=== PATIENT | male | born 1960 | race Caucasian/White ===

== ENCOUNTER 2017-05-08 16:35 | Emergency (ER) | payer OTHER, BC ==
[2017-05-08] MEDS ORDERED: LEVOFLOXACIN 500 MG/D5W RTU 100 ML IV ONE (17:26)
[2017-05-08] MEDS ORDERED: NORMAL SALINE 1000 ML 1,000 ML IV PRN (17:27)
[2017-05-08 18:03] LABS: APPEARANCE,URINE CLOUDY; BILIRUBIN,URINE NEGATIVE (NEGATIVE); GLUCOSE, URINE NEGATIVE (NEGATIVE); KETONES,URINE NEGATIVE (NEGATIVE); LEUKOCYTE ESTERASE,URINE MODERATE (NEGATIVE); NITRITE,URINE POSITIVE (NEGATIVE); PROTEIN,URINE 30 mg/dL (NEGATIVE); URINE SPECIFIC GRAVITY 1.019; UROBILINOGEN,URINE NEGATIVE mg/dL (<2.0)
[2017-05-08] MEDS ORDERED: IBUPROFEN 600 MG TABLET PO ONE (18:05)
[2017-05-08 18:06] LABS: HEMATOCRIT 42.4 % (37.9-51.0); HEMOGLOBIN 14.2 g/dL (13.5-17.0); HGB HCT DIFFERENCE 0.2; MEAN CORPUSCULAR HGB CONC 33.6 g/dL (32.0-36.0); MEAN CORPUSCULAR VOLUME 92 fl (80-97); WHITE BLOOD COUNT 6.9 10^3/uL (4.0-10.5)
--- NOTE | 2017-05-08 18:07 | RADIOLOGY REPORT (SQ) ---
EXAM DESCRIPTION: CHEST PA/LAT COMPLETED DATE/TIME: 05/08/2017 5:47 pm REASON FOR STUDY: fever, cough COMPARISON: 09/10/2008 EXAM PARAMETERS: NUMBER OF VIEWS: two views TECHNIQUE: Digital Frontal and Lateral radiographic views of the chest acquired. RADIATION DOSE: NA LIMITATIONS: none FINDINGS: LUNGS AND PLEURA: No opacities, masses or pneumothorax. No pleural effusion. MEDIASTINUM AND HILAR STRUCTURES: No masses or contour abnormalities. HEART AND VASCULAR STRUCTURES: Heart normal size. No evidence for failure. BONES: No acute findings. HARDWARE: None in the chest. OTHER: No other significant finding. IMPRESSION: NO SIGNIFICANT RADIOGRAPHIC FINDING IN THE CHEST. TECHNICAL DOCUMENTATION: JOB ID: [id number] [employer]- All Rights Reserved
[2017-05-08 18:10] LABS: BACTERIA,URINE 4+ /HPF; RBC,URINE 0-1 /HPF
[2017-05-08 18:21] LABS: BAND NEUTROPHILS % (MANUAL) 6 % (3-5); BASOPHILS % (MANUAL) 0 % (0-2); EOSINOPHILS % (MANUAL) 1 % (0-6); LYMPHOCYTES % (MANUAL) 3 % (13-45); TOTAL CELLS COUNTED 100
[2017-05-08 18:22] LABS: RBC MORPHOLOGY COMMENT NORMO-CYTIC/CHROMIC
[2017-05-08 18:28] LABS: ALANINE AMINOTRANSFERASE 28 U/L (21-72); ALBUMIN 3.4 g/dL (3.5-5.0); ALKALINE PHOSPHATASE 67 U/L (38-126); ANION GAP 9 (5-19); ASPARTATE AMINO TRANSFERASE 24 U/L (17-59); BILIRUBIN,DIRECT 0.4 mg/dL (0.0-0.4); BILIRUBIN,TOTAL 1.6 mg/dL (0.2-1.3); BLOOD UREA NITROGEN 16 mg/dL (7-20); CALCIUM 8.3 mg/dL (8.4-10.2); CARBON DIOXIDE 24 mmol/L (22-30); CHLORIDE 108 mmol/L (98-107); CREATININE RESULT 1.05 mg/dL (0.52-1.25); GLUCOSE 109 mg/dL (75-110); SODIUM 140.7 mmol/L (137-145); TOTAL PROTEIN 6.2 g/dL (6.3-8.2)
--- NOTE | 2017-05-08 20:45 | RADIOLOGY REPORT (SQ) ---
EXAM DESCRIPTION: CTA CHEST COMPLETED DATE/TIME: 05/08/2017 8:33 pm REASON FOR STUDY: sshortness of breath, rigors COMPARISON: None. TECHNIQUE: CT scan of the chest performed using helical scanning technique with dynamic intravenous contrast injection. Images reviewed with lung, soft tissue and bone windows. Reconstructed coronal and sagittal MPR images reviewed. Additional 3 dimensional post-processing performed to develop Maximal Intensity Projection images (DE P). All images stored on PACS. All CT scanners at this facility use dose modulation, iterative reconstruction, and/or weight based d osing when appropriate to reduce radiation dose to as low as reasonably achievable (ALARA). [facility]: Dose Right [facility]: CareDose [facility]: Dose Right [facility]: Teradose 4D [facility]: [employer] CONTRAST TYPE AND DOSE: contrast/concentration: Isovue 370.00 mg/ml; Total Contrast Delivered: 81.0 ml; Total Saline Delivered: 110.0 ml RENAL FUNCTION: BUN 16; creatinine 1.05 RADIATION DOSE: Up-to-date CT equipment and radiation dose reduction techniques were employed. CTDIv ol: 16.5 - 32.8 mGy. DLP: 4223 mGy-cm. . LIMITATIONS: Examination was ordered as a combination study, resulting in suboptimal bolus timing fo r the evaluation of the pulmonary arteries. FINDINGS: LUNGS AND PLEURA: Biapical emphysematous changes. No masses, infiltrates, pneumothorax. No pleural effusions, calcifications. AORTA AND GREAT VESSELS: No aneurysm or dissection. HEART: No pericardial effusion. PULMONARY ARTERIES: No emboli visualized in the main pulmonary arteries or the segmental branches. HILAR AND MEDIASTINAL STRUCTURES: No identified masses or abnormal nodes. HARDWARE: None in the chest. UPPER ABDOMEN: See separate report of the CT of the abdomen. THYROID AND OTHER SOFT TISSUES: No masses. No adenopathy. BONES: No acute or significant finding. 3D MIPS: Confirm above findings. OTHER: No other significant finding. IMPRESSION: NORMAL CTA OF THE CHEST. NO PULMONARY EMBOLI. BACKGROUND OF BIAPICAL EMPHYSEMATOUS INFANTE GE. TECHNICAL DOCUMENTATION: JOB ID: [id number] Quality ID # [id number]: Final reports with documentation of one or more dose reduction techniques (e.g., Au tomated exposure control, adjustment of the mA and/or kV according to patient size, use of iterative reconstruction technique) 2010 [employer]- All Rights Reserved
--- NOTE | 2017-05-08 20:51 | RADIOLOGY REPORT (SQ) ---
EXAM DESCRIPTION: CT ABD/PELVIS WITH IV ONLY COMPLETED DATE/TIME: 05/08/2017 8:33 pm REASON FOR STUDY: abd pain COMPARISON: None. TECHNIQUE: CT scan of the abdomen and pelvis performed using helical scanning technique with dynamic intravenous contrast injection. No oral contrast. Images reviewed with lung, soft tissue, and bone windows. Reconstructed coronal and sagittal MPR images reviewed. Delayed images for evaluation of the urinary system also acquired. All images stored on PACS. All CT scanners at this facility use dose modulation, iterative reconstruction, and/or weight based d osing when appropriate to reduce radiation dose to as low as reasonably achievable (ALARA). [facility]: Dose Right [facility]: CareDose [facility]: Dose Right [facility]: Teradose 4D [facility]: [facility] CONTRAST TYPE AND DOSE: 81 ML Isovue 370- low osmolar. RENAL FUNCTION: BUN 16; CREATININE 1.05 RADIATION DOSE: . LIMITATIONS: None. FINDINGS: LOWER CHEST: See separate report of the CT of the chest. LIVER: Normal size. No masses or dilated ducts. SPLEEN: Normal size. No focal lesions. PANCREAS: No masses. No significant calcifications. No adjacent inflammation or peripancreatic fluid collections. Pancreatic duct not dilated. GALLBLADDER: No identified stones by CT criteria. No inflammatory changes to suggest cholecystitis. ADRENAL GLANDS: No significant masses or asymmetry. RIGHT KIDNEY AND URETER: No solid masses. Incidental note is made of a 1.5 cm simple cyst. No sign ificant calcifications. No hydronephrosis or hydroureter. LEFT KIDNEY AND URETER: No solid masses. No significant calcifications. No hydronephrosis or hydr oureter. AORTA AND VESSELS: No aneurysm. No dissection. Renal arteries, SMA, celiac without stenosis. RETROPERITONEUM: No retroperitoneal adenopathy, hemorrhage or masses. BOWEL AND PERITONEAL CAVITY: No masses or inflammatory changes. No free fluid or peritoneal masses. APPENDIX: Normal. PELVIS: No mass or free fluid. Normal bladder. ABDOMINAL WALL: No masses. Small, fat containing left inguinal hernia. BONES: No significant or acute findings. OTHER: No other significant finding. IMPRESSION: NO SIGNIFICANT OR ACUTE FINDING IN THE ABDOMEN OR PELVIS ON CT SCAN WITH IV CONTRAST. TECHNICAL DOCUMENTATION: JOB ID: [id number] Quality ID # [id number]: Final reports with documentation of one or more dose reduction techniques (e.g., Au tomated exposure control, adjustment of the mA and/or kV according to patient size, use of iterative reconstruction technique) 2010 [employer]- All Rights Reserved
--- NOTE | 2017-05-08 22:05 | ER Document Report ---
ED General - General Chief Complaint: Fever Stated Complaint: ABDOMINAL CRAMPING Time Seen by Provider: 05/08/17 17:08 Mode of Arrival: Ambulatory Information source: Patient Notes: Is a 56-year-old man who brought to the emergency room by EMS because of abdominal pain and weakness. The patient had a prostate biopsy by Dr. Blevins yesterday and [facility] (status post 12 punch biopsies). He was placed on prophylactic Bactrim and was usual state of health until approximately 10 AM this morning. The patient developed significant Rigors and fever. Patient's temperature was noted by EMS to be 102.8. TRAVEL OUTSIDE OF THE [place] IN LAST 30 DAYS: No - HPI Onset: Just prior to arrival Onset/Duration: Sudden Quality of pain: Achy Severity: None Pain Level: Denies Associated symptoms: Fever. denies: Nausea, Vomiting, Shortness of breath Exacerbated by: Denies Relieved by: Denies Similar symptoms previously: No Recently seen / treated by doctor: Yes - Related Data Allergies/Adverse Reactions: No Known Allergies Allergy (Verified 05/08/17 17:08) Past Medical History - General Information source: Patient - Social History Smoking Status: Former Smoker Cigarette use (# per day): No Chew tobacco use (# tins/day): No Frequency of alcohol use: None Drug Abuse: None Lives with: Family Family History: Reviewed & Not Pertinent Patient has suicidal ideation: No Patient has homicidal ideation: No - Past Medical History Cardiac Medical History: Reports: None Pulmonary Medical History: Reports: None EENT Medical History: Reports: None Neurological Medical History: Reports: None Endocrine Medical History: Reports: None Renal/ Medical History: Reports: None. Denies: Hx Peritoneal Dialysis Malignancy Medical History: Reports Other - He had a biopsy of his prostate for an elevated PSA GI Medical History: Reports: None Musculoskeltal Medical History: Reports None Psychiatric Medical History: Reports: None Traumatic Medical History: Reports: None Infectious Medical History: Reports: None Past Surgical History: Reports: Hx Orthopedic Surgery - Immunizations Hx Diphtheria, Pertussis, Tetanus Vaccination: Yes Review of Systems - Review of Systems Constitutional: Chills, Fever EENT: No symptoms reported Cardiovascular: No symptoms reported Respiratory: No symptoms reported Gastrointestinal: No symptoms reported Genitourinary: See HPI Male Genitourinary: See HPI Musculoskeletal: No symptoms reported Skin: No symptoms reported Hematologic/Lymphatic: No symptoms reported Neurological/Psychological: No symptoms reported Physical Exam - Vital signs Vitals: Temp Pulse Resp BP Pulse Ox 102.3 F H 110 H 18 122/66 93 05/08/17 17:00 05/08/17 17:00 05/08/17 17:00 05/08/17 17:00 05/08/17 17:00 Notes: Physical exam: GENERAL: 6-year-old man, alert and oriented 3, no acute distress, febrile HEAD: Atraumatic, normocephalic. EYES: Pupils equal round and reactive to light, extraocular movements intact, sclera anicteric, conjunctiva are normal. ENT: TMs normal, nares patent, oropharynx clear without exudates. Moist mucous membranes. NECK: Normal range of motion, supple without lymphadenopathy or JVD. LUNGS: Breath sounds clear to auscultation bilaterally and equal. No wheezes rales or rhonchi. HEART: Regular rate and rhythm without murmurs, rubs or gallops. ABDOMEN: Soft, normoactive bowel sounds. No tenderness to palpation. No guarding, no rebound. No masses appreciated. EXTREMITIES: Normal range of motion, no pitting or edema. No clubbing or cyanosis. NEUROLOGICAL: Cranial nerves II through XII grossly intact. Normal speech, normal gait. PSYCH: Normal mood, normal affect. SKIN: Warm, Dry, normal turgor, no rashes or lesions noted. Course - Re-evaluation Re-evalutation: 05/08/17 22:22 Note: It had symptoms concerning for bacteremia. His vital signs are stable. His labs show normal white count with a left shift and a mild bandemia. He was treated with IV fluids and IV levofloxacin. His oxygen saturation has been in 92-93% so a CT of the chest was performed to make sure there were no pulmonary emboli (none was seen). It does show some emphysematous changes which is consistent with his remote history of smoking. Because he had issues with abdominal discomfort, CT scan of the abdomen was done which showed no acute intra-abdominal process. In analysis did show some white cells and some bacteria. And urine cultures were sent before the antibiotics were started. I had discussed the case with Dr. Calderon who is covering for Dr. Blevins and he wanted me to send the patient home with oral Cipro and oral amoxicillin. He asked me to do a post void residual on the patient. I discussed this with the patient and he was adamantly against catheterization at this time. I did check a bedside ultrasound and he does have some retention on urine and I offered him a Macedo catheter with a bag and I explained the risks of infected urine, residual urinary retention and sepsis. At this time, the patient feels better and is adamantly against a catheter. He understands the risks and he said if he feels any worse he will come back for that. Otherwise, he will follow-up with Dr. Blevins on Wednesday. 05/08/17 22:26 Informed the patient that he will be contacted if his urine or blood cultures are positive. His cell phone number is [phone] - Vital Signs Vital signs: Temp Pulse Resp BP Pulse Ox 98.2 F 110 H 24 H 109/68 98 05/08/17 22:18 05/08/17 17:00 05/08/17 22:18 05/08/17 22:18 05/08/17 22:18 - Laboratory Result Diagrams: 05/08/17 17:40 05/08/17 17:40 Laboratory results interpreted by me: 05/08/17 05/08/17 05/08/17 17:40 17:40 17:40 Seg Neuts % (Manual) 90 H Band Neutrophils % 6 H Lymphocytes % (Manual) 3 L Monocytes % (Manual) 0 L Abs Lymphs (Manual) 0.2 L Abs Monocytes (Manual) 0.0 L Chloride 108 H Calcium 8.3 L Total Bilirubin 1.6 H Total Protein 6.2 L Albumin 3.4 L Urine Protein 30 H Urine Blood SMALL H Urine Nitrite POSITIVE H Ur Leukocyte Esterase MODERATE H - Diagnostic Test Radiology reviewed: Image reviewed, Reports reviewed - CTA of the chest shows emphysematous changes, no pulmonary emboli. CT of the abdomen shows no acute intra-abdominal process. Discharge - Discharge Clinical Impression: Fever status post prostate biopsy Condition: Stable Disposition: HOME, SELF-CARE Instructions: Acetaminophen, Fever ([facility]) Additional Instructions: Recommendations: As we discussed, I would take it easy over the next few days. You can take Tylenol and Advil for pain Like you to see Dr. Blevins on Wednesday. Please tell him that we sent blood and urine cultures. Treated with IV levofloxacin while you were in the emergency room peer I did Speak with Dr. Calderon who was covering for Dr. Gen lema. Take the antibiotics as prescribed. If you have persistent fever, abdominal pain or if you feel you are getting worse, return to the ER either here or at [facility] (Dr Blevins admits patients to [facility] but not here at [place]). Continue with the Flomax. Make concerted efforts to urinate even if you do not have the sensation to. Prescriptions: Amoxicillin Trihydrate [Amoxil 500 mg Capsule] 500 mg PO TID #30 cap Ciprofloxacin HCl [Cipro 500 mg Tablet] 500 mg PO BID #20 tablet
[2017-05-08 22:22] VITALS: BP 109/68
== END 2017-05-08 22:22 | disposition home or self-care (01) ==
LOC: ER 16:35
DX: A41.9 Sepsis, unspecified organism (principal); R68.89 Other general symptoms and signs; R50.9 Fever, unspecified; R06.02 Shortness of breath; R00.0 Tachycardia, unspecified
CPT/HCPCS: 99285; 96365; 36415; 87040; 87086; 85025; 87077; 87088; 80053; 81001; 87186; 71020; 71275; 74177; J1956; J7030

== ENCOUNTER 2017-05-09 01:21 | Inpatient (IN) | payer OTHER, BC ==
[2017-05-09] MEDS ORDERED: CEFTRIAXONE 1 GM/D5W RTU 50 ML IV ONE (01:39)
[2017-05-09] MEDS ORDERED: VANCOMYCIN HCL INJ 1000 MG VIAL IV ONE (01:39)
[2017-05-09] MEDS ORDERED: NORMAL SALINE 1000 ML 1,000 ML IV ONE ×2 (01:39→10:06)
--- NOTE | 2017-05-09 01:41 | ER Document Report ---
ED General - General Chief Complaint: Shortness Of Breath Stated Complaint: BREATHING PROBLEMS Time Seen by Provider: 05/09/17 01:28 Notes: Patient is a 56-year-old male who 24 hours ago had a 12 punch biopsy of his prostate who presents with recurrent fevers after just being discharged in the emergency department 3 hours ago. During his prior to the patient was noted to be febrile up to 102.7, tachycardic, and ill in appearance. He was given IV antibiotics and on the recommendation of the urologist who performed the procedure he was discharged home on ciprofloxacin. Patient states shortly after returning home he again developed diffuse chills, rigors, recurrent fever. He notes that he was shaking so bad he felt short of breath. Nothing improves or worsens his symptoms. Denies any focal abdominal pain, sputum production, chest pain or syncope. TRAVEL OUTSIDE OF THE [place] IN LAST 30 DAYS: No - Related Data Allergies/Adverse Reactions: No Known Allergies Allergy (Verified 05/08/17 17:08) Past Medical History - General Information source: Patient - Social History Smoking Status: Never Smoker Frequency of alcohol use: None Drug Abuse: None Lives with: Spouse/Significant other Family History: Reviewed & Not Pertinent Renal/ Medical History: Denies: Hx Peritoneal Dialysis Past Surgical History: Reports: Hx Orthopedic Surgery - Immunizations Hx Diphtheria, Pertussis, Tetanus Vaccination: Yes Review of Systems - Review of Systems Notes: Constitutional: Positive for fever. HENT: Negative for sore throat. Eyes: Negative for visual changes. Cardiovascular: Negative for chest pain. Respiratory: Positive for shortness of breath. Gastrointestinal: Negative for abdominal pain, vomiting or diarrhea. Genitourinary: Negative for dysuria. Musculoskeletal: Negative for back pain. Skin: Negative for rash. Neurological: Negative for headaches, weakness or numbness. 10 point ROS negative except as marked above and in HPI. Physical Exam - Vital signs Vitals: Pulse Pulse Ox 130 H 94 05/09/17 01:25 05/09/17 01:25 Interpretation: Tachycardic, Febrile Notes: PHYSICAL EXAMINATION: GENERAL: Ill in appearance, shaking HEAD: Atraumatic, normocephalic. EYES: Pupils equal round and reactive to light, extraocular movements intact, sclera anicteric, conjunctiva are normal. ENT: nares patent, oropharynx clear without exudates. Dry mucous membranes. NECK: Normal range of motion, supple without lymphadenopathy LUNGS: Breath sounds clear to auscultation bilaterally and equal. No wheezes rales or rhonchi. HEART: Regular tachycardia without murmurs ABDOMEN: Soft, nontender, normoactive bowel sounds. No guarding, no rebound. No masses appreciated. EXTREMITIES: Normal range of motion, no pitting or edema. No cyanosis. NEUROLOGICAL: No focal neurological deficits. Moves all extremities spontaneously and on command. PSYCH: Normal mood, normal affect. SKIN: Warm, Dry, normal turgor, no rashes or lesions noted. Course - Re-evaluation Re-evalutation: 05/09/17 01:40 Patient again presents with a fever, tachycardic, mildly dyspneic, ill in appearance. I have reviewed the prior visit note as well as the CT of the chest and abdomen report. I agree with Dr. Jesus that patient's symptoms are very concerning for acute bacteremia in the setting of a recent prostate procedure. Given that he continues to have both rigors, fever, and tachycardia with a likely gram-negative bacteremia in the setting of a recent prostate procedure, I do not believe it is safe for this patient to be discharged again at this time. Blood cultures are pending from his prior visit. Will broaden his antibiotics to cefepime and vancomycin. Will discuss with the hospitalist for admission. 05/09/17 02:26 Patient's laboratories now show new concerning findings with elevated band levels and a leukopenia again concerning for sepsis. Other laboratories are unchanged. - Vital Signs Vital signs: Temp Pulse Resp BP Pulse Ox 100 F 130 H 17 131/69 H 95 05/09/17 01:30 05/09/17 01:25 05/09/17 02:01 05/09/17 02:01 05/09/17 02:01 - Laboratory Result Diagrams: 05/09/17 01:35 05/09/17 01:35 Laboratory results interpreted by me: 05/09/17 05/09/17 01:35 01:35 WBC 1.7 L D Band Neutrophils % 12 H Monocytes % (Manual) 0 L Metamyelocytes % 2 H Abs Neuts (Manual) 1.2 L Abs Monocytes (Manual) 0.0 L Sodium 146.4 H Chloride 110 H Carbon Dioxide 20 L - Diagnostic Test Radiology reviewed: Image reviewed, Reports reviewed Radiology results interpreted by me: 05/09/17 03:00 Chest x-ray: No acute infiltrate or pneumothorax Discharge - Discharge Clinical Impression: Rigors Sepsis Qualifiers: Sepsis type: sepsis due to unspecified organism Qualified Code(s): A41.9 - Sepsis, unspecified organism Fever Qualifiers: Fever type: unspecified Qualified Code(s): R50.9 - Fever, unspecified Condition: Fair Disposition: ADMITTED INPATIENT Admitting Provider: [facility] Admitted: Telemetry
[2017-05-09 01:44] LABS: HEMOGLOBIN 15.7 g/dL (13.5-17.0); HGB HCT DIFFERENCE -0.9; MEAN CORPUSCULAR HEMOGLOBIN 30.8 pg (27.0-33.4); MEAN CORPUSCULAR HGB CONC 32.7 g/dL (32.0-36.0); MEAN CORPUSCULAR VOLUME 94 fl (80-97); RED BLOOD COUNT 5.09 10^6/uL (4.35-5.55); RED CELL DISTRIBUTION WIDTH 13.4 % (11.5-14.0)
[2017-05-09 01:56] LABS: ANION GAP 16 (5-19); BLOOD UREA NITROGEN 15 mg/dL (7-20); CALCIUM 8.9 mg/dL (8.4-10.2); CARBON DIOXIDE 20 mmol/L (22-30); CHLORIDE 110 mmol/L (98-107); GLUCOSE 86 mg/dL (75-110); POTASSIUM 4.4 mmol/L (3.6-5.0); SODIUM 146.4 mmol/L (137-145)
[2017-05-09 02:01] LABS: WHITE BLOOD COUNT 1.7 10^3/uL (4.0-10.5)
[2017-05-09 02:16] LABS: BASOPHILS % (MANUAL) 0 % (0-2); EOSINOPHILS % (MANUAL) 0 % (0-6); LYMPHOCYTES % (MANUAL) 30 % (13-45); TOTAL CELLS COUNTED 50
[2017-05-09 02:18] LABS: PLATELET CLUMPS PRESENT; POLYCHROMASIA SLIGHT; TOXIC GRANULATION SLIGHT; TOXIC VACUOLATION PRESENT
[2017-05-09 02:20] LABS: BAND NEUTROPHILS % (MANUAL) 12 % (3-5)
[2017-05-09] MEDS ORDERED: MAG HYDROX/AL HYDROX/SIMETH SUSP 30 ML UDCUP PO PRN (02:31)
[2017-05-09] MEDS ORDERED: ONDANSETRON HCL INJ/PF 4 MG/2 ML SDV IV PRN (02:31)
--- NOTE | 2017-05-09 02:36 | RADIOLOGY REPORT (SQ) ---
EXAM DESCRIPTION: CHEST SINGLE VIEW COMPLETED DATE/TIME: 05/09/2017 2:18 am REASON FOR STUDY: sob COMPARISON: Chest x-ray and CTA chest 05/08/2017. EXAM PARAMETERS: NUMBER OF VIEWS: One view. TECHNIQUE: Single frontal radiographic view of the chest acquired. RADIATION DOSE: NA LIMITATIONS: None. FINDINGS: LUNGS AND PLEURA: No consolidation, pneumothorax or pleural effusion. MEDIASTINUM AND HILAR STRUCTURES: No masses. Contour normal. HEART AND VASCULAR STRUCTURES: Heart normal in size. No overt vascular congestion. BONES: No acute findings. HARDWARE: None in the chest. IMPRESSION: No acute radiographic finding in the chest. TECHNICAL DOCUMENTATION: JOB ID: [id number]
[2017-05-09] MEDS ORDERED: VANCOMYCIN HCL 0 MG in DEXTROSE 5%-WATER 250 ML IV NR (02:45)
[2017-05-09] MEDS: NORMAL SALINE 1000 ML 1,000 ML IV SCH ×3 (04:39→21:10)
--- NOTE | 2017-05-09 04:39 | PDOC H&P ---
History of Present Illness Admission Date/PCP: 05/09/17 02:32 Patient complains of: Fever History of Present Illness: NATALIO BETHEA is a 56 year old male with a past medical history of 12 punch biopsies of the prostate 24 hours ago who is had recurrent fevers and chills presented to the emergency room earlier in the day discharge 3 hours ago returns with a fever of 102.7, tachycardia toxic appearing. A repeat CBC reveals new neutropenia and bandemia. He started on empiric antibiotics and referred to the hospital for admission. CT abdomen pelvis earlier in the day unremarkable. Past Medical History Renal/ Medical History: Reports: Other - Elevated PSA concerning for prostate cancer Past Surgical History Past Surgical History: Reports: Orthopedic Surgery Social History Information Source: Patient Lives with: Spouse/Significant other Smoking Status: Never Smoker Frequency of Alcohol Use: None Drugs: None - Advance Directive Resuscitation Status: Full Code Family History Family History: Malignancy - Prostate cancer Parental Family History Reviewed: Yes Children Family History Reviewed: Yes Sibling(s) Family History Reviewed.: Yes Medication/Allergy Home Medications: Tamsulosin HCl [Flomax 0.4 mg Cap.sr] 1 tab PO DAILY 05/09/17 Allergies/Adverse Reactions: No Known Allergies Allergy (Verified 05/08/17 17:08) Review of Systems Constitutional: ABSENT: chills, fever(s), headache(s), weight gain, weight loss Eyes: ABSENT: visual disturbances Ears: ABSENT: hearing changes Cardiovascular: ABSENT: chest pain, dyspnea on exertion, edema, orthropnea, palpitations Respiratory: ABSENT: cough, hemoptysis Gastrointestinal: ABSENT: abdominal pain, constipation, diarrhea, hematemesis, hematochezia, nausea, vomiting Genitourinary: ABSENT: dysuria, hematuria Musculoskeletal: ABSENT: joint swelling Integumentary: ABSENT: rash, wounds Neurological: ABSENT: abnormal gait, abnormal speech, confusion, dizziness, focal weakness, syncope Psychiatric: ABSENT: anxiety, depression, homidical ideation, suicidal ideation Endocrine: ABSENT: cold intolerance, heat intolerance, polydipsia, polyuria Hematologic/Lymphatic: ABSENT: easy bleeding, easy bruising Physical Exam Vital Signs: Temp Pulse Resp BP Pulse Ox 100 F 130 H 20 109/59 L 93 05/09/17 01:30 05/09/17 01:25 05/09/17 04:01 05/09/17 04:01 05/09/17 04:01 General appearance: PRESENT: cooperative, mild distress Head exam: PRESENT: atraumatic, normocephalic Eye exam: PRESENT: conjunctiva pink, EOMI, PERRLA. ABSENT: scleral icterus Ear exam: PRESENT: normal external ear exam Mouth exam: PRESENT: moist, tongue midline Neck exam: ABSENT: carotid bruit, JVD, lymphadenopathy, thyromegaly Respiratory exam: PRESENT: clear to auscultation arti. ABSENT: rales, rhonchi, wheezes Cardiovascular exam: PRESENT: RRR. ABSENT: diastolic murmur, rubs, systolic murmur Pulses: PRESENT: normal dorsalis pedis pul Vascular exam: PRESENT: normal capillary refill GI/Abdominal exam: PRESENT: normal bowel sounds, soft. ABSENT: distended, guarding, mass, organolmegaly, rebound, tenderness Rectal exam: PRESENT: deferred Extremities exam: PRESENT: full ROM. ABSENT: calf tenderness, clubbing, pedal edema Neurological exam: PRESENT: alert, awake, oriented to person, oriented to place , oriented to time, oriented to situation, CN II-XII grossly intact. ABSENT: motor sensory deficit Psychiatric exam: PRESENT: appropriate affect, normal mood. ABSENT: homicidal ideation, suicidal ideation Skin exam: PRESENT: dry, intact, warm. ABSENT: cyanosis, rash Results Laboratory Results: 05/09/17 03:40 Lactic Acid 1.7 Impressions: Chest X-Ray 05/09/17 01:30 IMPRESSION: No acute radiographic finding in the chest. Assessment & Plan - Diagnosis (1) Bacteremia Is this a current diagnosis for this admission?: YesPlan: Following prostate biopsy times 1224 hrs. ago. He is placed on vancomycin and Rocephin empirically, blood and urine culture pending follow-up CBC and chemistry (2) Sepsis Qualifiers: Sepsis type: sepsis due to unspecified organism Qualified Code(s): A41.9 - Sepsis, unspecified organism Is this a current diagnosis for this admission?: YesPlan: Secondary to #1, IV fluid challenge, empiric antibiotics with broad coverage, consider pressors (3) Bandemia Is this a current diagnosis for this admission?: YesPlan: Secondary to #1 follow-up CBC (4) BPH (benign prostatic hyperplasia) Is this a current diagnosis for this admission?: YesPlan: Evaluate for urinary retention resume tamsulosin as blood pressure improves - Time Time Spent: 30 to 50 Minutes - Inpatient Certification Medical Necessity: Need Close Monitoring Due to Risk of Patient Decompensation
[2017-05-09] MEDS: ACETAMINOPHEN 325 MG TABLET PO PRN ×3 (05:24→21:11)
[2017-05-09] MEDS: HEPARIN SOD (PORCINE) 5,000 UNIT/ML 1 ML SYRINGE SUBCUT SCH ×3 (05:25→21:07)
[2017-05-09 05:59] LABS: HEMOGLOBIN 14.8 g/dL (13.5-17.0); HGB HCT DIFFERENCE 0.4; MEAN CORPUSCULAR HEMOGLOBIN 30.9 pg (27.0-33.4); MEAN CORPUSCULAR HGB CONC 33.5 g/dL (32.0-36.0); MEAN CORPUSCULAR VOLUME 92 fl (80-97); RED BLOOD COUNT 4.78 10^6/uL (4.35-5.55); RED CELL DISTRIBUTION WIDTH 13.6 % (11.5-14.0)
[2017-05-09 06:05] LABS: ANION GAP 9 (5-19); BLOOD UREA NITROGEN 15 mg/dL (7-20); CALCIUM 8.4 mg/dL (8.4-10.2); CARBON DIOXIDE 22 mmol/L (22-30); CHLORIDE 110 mmol/L (98-107); CREATININE RESULT 1.06 mg/dL (0.52-1.25); GLUCOSE 103 mg/dL (75-110); POTASSIUM 4.4 mmol/L (3.6-5.0); SODIUM 140.6 mmol/L (137-145)
[2017-05-09 07:07] LABS: BAND NEUTROPHILS % (MANUAL) 28 % (3-5); BASOPHILS % (MANUAL) 0 % (0-2); EOSINOPHILS % (MANUAL) 0 % (0-6); LYMPHOCYTES % (MANUAL) 1 % (13-45); TOTAL CELLS COUNTED 100
[2017-05-09 07:08] LABS: PLATELET CLUMPS PRESENT; POIKILOCYTOSIS SLIGHT; TOXIC GRANULATION SLIGHT; TOXIC VACUOLATION PRESENT
[2017-05-09 07:09] LABS: WHITE BLOOD COUNT 5.8 10^3/uL (4.0-10.5)
--- NOTE | 2017-05-09 09:34 | EKG REPORT ---
SEVERITY:- OTHERWISE NORMAL ECG - SINUS TACHYCARDIA : Confirmed by: Boston Barraza 09-May-2017 09:33:21
[2017-05-09] MEDS ORDERED: TAMSULOSIN HCL 0.4 MG CAP.SR.24H PO SCH (10:00)
[2017-05-09] MEDS: CEFTRIAXONE 1 GM/D5W RTU 50 ML IV SCH (10:11)
[2017-05-09] MEDS ORDERED: TAMSULOSIN HCL 0.4 MG CAP.SR.24H PO ONE (13:00)
[2017-05-10] MEDS: ACETAMINOPHEN 325 MG TABLET PO PRN ×2 (04:51→23:17)
[2017-05-10] MEDS: HEPARIN SOD (PORCINE) 5,000 UNIT/ML 1 ML SYRINGE SUBCUT SCH ×3 (05:00→21:50)
[2017-05-10 05:25] LABS: HEMATOCRIT 40.5 % (37.9-51.0); HEMOGLOBIN 13.4 g/dL (13.5-17.0); HGB HCT DIFFERENCE -0.3; MEAN CORPUSCULAR VOLUME 94 fl (80-97); RED CELL DISTRIBUTION WIDTH 14.2 % (11.5-14.0)
[2017-05-10 05:38] LABS: ANION GAP 9 (5-19); BLOOD UREA NITROGEN 19 mg/dL (7-20); CALCIUM 8.2 mg/dL (8.4-10.2); CARBON DIOXIDE 21 mmol/L (22-30); CHLORIDE 114 mmol/L (98-107); CREATININE RESULT 0.89 mg/dL (0.52-1.25); GLUCOSE 79 mg/dL (75-110); POTASSIUM 4.2 mmol/L (3.6-5.0); SODIUM 143.7 mmol/L (137-145); WHITE BLOOD COUNT 17.2 10^3/uL (4.0-10.5)
[2017-05-10 05:57] LABS: BAND NEUTROPHILS % (MANUAL) 8 % (3-5); BASOPHILS % (MANUAL) 1 % (0-2); EOSINOPHILS % (MANUAL) 0 % (0-6); LYMPHOCYTES % (MANUAL) 6 % (13-45); TOTAL CELLS COUNTED 100
[2017-05-10 05:58] LABS: TOXIC GRANULATION 1+; TOXIC VACUOLATION PRESENT
[2017-05-10 06:00] LABS: ANISOCYTOSIS SLIGHT; BURR CELLS 1+; POIKILOCYTOSIS 1+; TEAR DROP CELLS SLIGHT
[2017-05-10] MEDS ORDERED: ONDANSETRON HCL INJ/PF 4 MG/2 ML SDV IV PRN (07:17)
[2017-05-10] MEDS: IPRATROPIUM/ALBUTEROL 0.5-2.5 MG/3 ML AMPUL NEB PRN ×2 (08:00→19:38)
[2017-05-10] MEDS: ACETYLCYSTEINE 20% SOLN 800 MG/4 ML VIAL.NEB NEB SCH ×2 (08:00→19:37)
[2017-05-10] MEDS: TAMSULOSIN HCL 0.4 MG CAP.SR.24H PO SCH (09:23)
[2017-05-10] MEDS: CEFTRIAXONE 1 GM/D5W RTU 50 ML IV SCH (09:23)
[2017-05-10] MEDS ORDERED: LOPERAMIDE HCL 2 MG CAPSULE PO PRN (09:28)
--- NOTE | 2017-05-10 11:18 | PDOC PROGRESS REPORT ---
Subjective Progress Note for:: 05/10/17 Subjective:: Patient is seen on morning rounds. He is resting comfortably in bed at the present time. He states he feels better than he did yesterday. He denies any fever, chills, or rigors. He states his only complaint is he started having diarrhea last night. States it has happened probably 4 times overnight. He states his stools now liquid yellow. He denies any nausea, vomiting or abdominal pain. He denies any significant arthralgias or back pain presently smoking. Rest of review of systems are negative. Physical Exam Vital Signs: Temp Pulse Resp BP Pulse Ox 97.9 F 88 20 107/55 L 93 05/10/17 07:19 05/10/17 07:19 05/10/17 07:19 05/10/17 07:19 05/10/17 07:19 Intake & Output 05/09/17 05/10/17 05/11/17 06:59 06:59 06:59 Intake Total 500 4420 Balance 500 4420 Weight 108 kg 109.2 kg General appearance: PRESENT: no acute distress, obese, well-developed, well- nourished Head exam: PRESENT: atraumatic, normocephalic Eye exam: PRESENT: conjunctiva pink, EOMI, PERRLA. ABSENT: scleral icterus Ear exam: PRESENT: normal external ear exam Mouth exam: PRESENT: moist, tongue midline Neck exam: ABSENT: carotid bruit, JVD, lymphadenopathy, thyromegaly Respiratory exam: PRESENT: clear to auscultation arti. ABSENT: rales, rhonchi, wheezes Cardiovascular exam: PRESENT: RRR. ABSENT: diastolic murmur, rubs, systolic murmur Pulses: PRESENT: normal dorsalis pedis pul Vascular exam: PRESENT: normal capillary refill GI/Abdominal exam: PRESENT: normal bowel sounds, soft. ABSENT: distended, guarding, mass, organolmegaly, rebound, tenderness Rectal exam: PRESENT: deferred Extremities exam: PRESENT: full ROM. ABSENT: calf tenderness, clubbing, pedal edema Neurological exam: PRESENT: alert, awake, oriented to person, oriented to place , oriented to time, oriented to situation, CN II-XII grossly intact. ABSENT: motor sensory deficit Psychiatric exam: PRESENT: appropriate affect, normal mood. ABSENT: homicidal ideation, suicidal ideation Skin exam: PRESENT: dry, intact, warm. ABSENT: cyanosis, rash Results Laboratory Results: 05/10/17 04:39 05/10/17 04:39 05/10/17 05/10/17 04:39 04:39 WBC 17.2 H D RBC 4.30 L Hgb 13.4 L Hct 40.5 MCV 94 MCH 31.0 MCHC 33.0 RDW 14.2 H Plt Count 103 L Seg Neutrophils % Not Reportable Lymphocytes % Not Reportable Monocytes % Not Reportable Eosinophils % Not Reportable Basophils % Not Reportable Absolute Neutrophils Not Reportable Absolute Lymphocytes Not Reportable Absolute Monocytes Not Reportable Absolute Eosinophils Not Reportable Absolute Basophils Not Reportable Sodium 143.7 Potassium 4.2 Chloride 114 H Carbon Dioxide 21 L Anion Gap 9 BUN 19 Creatinine 0.89 Est GFR ( Amer) > 60 Est GFR (Non-Af Amer) > 60 Glucose 79 Calcium 8.2 L Impressions: Chest X-Ray 05/09/17 01:30 IMPRESSION: No acute radiographic finding in the chest. Assessment & Plan - Diagnosis (1) Bacteremia Is this a current diagnosis for this admission?: YesPlan: Continue IV antibiotics therapy. Cultures pending. 2 out of 2 blood cultures positive for gram negative rods (2) UTI (urinary tract infection) Qualifiers: Urinary tract infection type: acute pyelonephritis Qualified Code(s) : N10 - Acute pyelonephritis Is this a current diagnosis for this admission?: YesPlan: Urine positive for gram negative rods. Patient underwent prostate biopsy on due to elevated PSA (3) Bandemia Is this a current diagnosis for this admission?: YesPlan: Improving with antibiotic therapy will continue to monitor (4) BPH (benign prostatic hyperplasia) Qualifiers: Lower urinary tract symptom detail: urinary hesitancy Is this a current diagnosis for this admission?: Yes (5) Diarrhea Qualifiers: Diarrhea type: unspecified type Qualified Code(s): R19.7 - Diarrhea , unspecified Is this a current diagnosis for this admission?: YesPlan: Send stool for cdiff. Will add lactobacillus bid, imodium if cdiff is negative (6) Fever Qualifiers: Fever type: unspecified Qualified Code(s): R50.9 - Fever, unspecified Is this a current diagnosis for this admission?: YesPlan: Resolved with 24 hr of IV antibiotic therapy (7) Sepsis Qualifiers: Sepsis type: sepsis due to unspecified organism Qualified Code(s): A41.9 - Sepsis, unspecified organism Is this a current diagnosis for this admission?: YesPlan: Hypotension and tachycardia have resolved with IV hydration and antibiotic therapy - Time Time Spent with patient: 25-34 minutes Critical Time spent with patient: 15-24 minutes Medications reviewed and adjusted accordingly: Yes Anticipated discharge: Home
[2017-05-10] MEDS ORDERED: LACTOBACILLUS ACIDOPHILUS 250 MG TAB PO ONE (11:30)
[2017-05-10 17:10] LABS: PATH REVIEW PATHOLOGIST REVIEWED
[2017-05-10] MEDS: LACTOBACILLUS ACIDOPHILUS 250 MG TAB PO SCH (18:28)
[2017-05-11 05:19] LABS: ABSOLUTE EOSINOPHILS # (AUTO) 0.1 10^3/uL (0.0-0.6); ABSOLUTE LYMPHOCYTES (AUTO) 1.7 10^3/uL (0.5-4.7); ABSOLUTE MONOCYTES (AUTO) 1.1 10^3/uL (0.1-1.4); ABSOLUTE NEUT (AUTO) 11.1 10^3/uL (1.7-8.2); BASOPHILS % (AUTO) 0.3 % (0-2); EOSINOPHILS % (AUTO) 0.5 % (0-6); HEMATOCRIT 37.7 % (37.9-51.0); HEMOGLOBIN 12.6 g/dL (13.5-17.0); HGB HCT DIFFERENCE 0.1; LYMPHOCYTES % (AUTO) 12.2 % (13-45); MEAN CORPUSCULAR HEMOGLOBIN 30.7 pg (27.0-33.4); MEAN CORPUSCULAR HGB CONC 33.4 g/dL (32.0-36.0); MEAN CORPUSCULAR VOLUME 92 fl (80-97); MONOCYTES % (AUTO) 7.6 % (3-13); RED CELL DISTRIBUTION WIDTH 13.7 % (11.5-14.0); SEGMENTED NEUTROPHILS % (AUTO) 79.4 % (42-78)
[2017-05-11 05:34] LABS: ANION GAP 9 (5-19); BLOOD UREA NITROGEN 13 mg/dL (7-20); CALCIUM 8.4 mg/dL (8.4-10.2); CARBON DIOXIDE 21 mmol/L (22-30); CHLORIDE 111 mmol/L (98-107); CREATININE RESULT 0.72 mg/dL (0.52-1.25); GLUCOSE 92 mg/dL (75-110)
[2017-05-11] MEDS: HEPARIN SOD (PORCINE) 5,000 UNIT/ML 1 ML SYRINGE SUBCUT SCH ×3 (05:38→21:52)
[2017-05-11] MEDS: IPRATROPIUM/ALBUTEROL 0.5-2.5 MG/3 ML AMPUL NEB PRN (07:50)
[2017-05-11] MEDS: ACETYLCYSTEINE 20% SOLN 800 MG/4 ML VIAL.NEB NEB SCH (07:50)
[2017-05-11] MEDS: LACTOBACILLUS ACIDOPHILUS 250 MG TAB PO SCH ×2 (09:06→17:33)
[2017-05-11] MEDS: TAMSULOSIN HCL 0.4 MG CAP.SR.24H PO SCH (09:06)
[2017-05-11] MEDS: CEFTRIAXONE 1 GM/D5W RTU 50 ML IV SCH (09:06)
--- NOTE | 2017-05-11 13:31 | PDOC PROGRESS REPORT ---
Subjective Progress Note for:: 05/11/17 Subjective:: reason for visit: f/u UTI, sepsis, bacteremia hospital course: per other's notes -"NATALIO BETHEA is a 56 year old male with a past medical history of 12 punch biopsies of the prostate 24 hours ago who is had recurrent fevers and chills presented to the emergency room earlier in the day discharge 3 hours ago returns with a fever of 102.7, tachycardia toxic appearing. A repeat CBC reveals new neutropenia and bandemia. He started on empiric antibiotics and referred to the hospital for admission. CT abdomen pelvis earlier in the day unremarkable. he continues to sufffer rigors without true fevers >36hrs, last temp was night of his admission max 102.6. he was admitted and started on IV abx with good improvement. His blood and urine cultures all showing Klebsiella Pna resistant to sulfa, PCN and 1st gen cephs but susc to the rocephin and FQs. overall he feels better, denies chest pain, palpitations, n/v/d - in fact his stools are firming up. ROS: as above, all systems reviewed, remaining systems negative. Physical Exam Vital Signs: Temp Pulse Resp BP Pulse Ox 97.7 F 75 18 134/83 H 97 05/11/17 11:03 05/11/17 11:03 05/11/17 11:03 05/11/17 11:03 05/11/17 11:03 Intake & Output 05/10/17 05/11/17 05/12/17 06:59 06:59 06:59 Intake Total 4420 660 Balance 4420 660 Weight 109.2 kg 108.5 kg General appearance: PRESENT: no acute distress, well-developed, well-nourished Head exam: PRESENT: atraumatic, normocephalic Eye exam: PRESENT: EOMI. ABSENT: conjunctival injection, scleral icterus Mouth exam: PRESENT: moist, neck supple Neck exam: PRESENT: full ROM. ABSENT: tracheal deviation Respiratory exam: PRESENT: clear to auscultation arti, unlabored. ABSENT: accessory muscle use Cardiovascular exam: PRESENT: RRR. ABSENT: systolic murmur Pulses: PRESENT: normal radial pulses, normal dorsalis pedis pul GI/Abdominal exam: PRESENT: normal bowel sounds, soft. ABSENT: tenderness Extremities exam: PRESENT: pedal edema - trace. ABSENT: calf tenderness Musculoskeletal exam: PRESENT: ambulatory, full ROM Neurological exam: PRESENT: alert, awake, oriented to person, oriented to place , oriented to time Psychiatric exam: PRESENT: appropriate affect, normal mood Skin exam: PRESENT: warm. ABSENT: dry Results Laboratory Results: 05/11/17 04:00 05/11/17 04:00 05/11/17 05/11/17 04:00 04:00 WBC 14.0 H RBC 4.10 L Hgb 12.6 L Hct 37.7 L MCV 92 MCH 30.7 MCHC 33.4 RDW 13.7 Plt Count 110 L Seg Neutrophils % 79.4 H Lymphocytes % 12.2 L Monocytes % 7.6 Eosinophils % 0.5 Basophils % 0.3 Absolute Neutrophils 11.1 H Absolute Lymphocytes 1.7 Absolute Monocytes 1.1 Absolute Eosinophils 0.1 Absolute Basophils 0.0 Sodium 141.0 Potassium 4.0 Chloride 111 H Carbon Dioxide 21 L Anion Gap 9 BUN 13 Creatinine 0.72 Est GFR ( Amer) > 60 Est GFR (Non-Af Amer) > 60 Glucose 92 Calcium 8.4 Impressions: Chest X-Ray 05/09/17 01:30 IMPRESSION: No acute radiographic finding in the chest. Status: Imported from PACS Assessment & Plan - Diagnosis (1) Bacteremia Is this a current diagnosis for this admission?: YesPlan: continue IV abx today and transition to oral for possible d/c home tomorrow (2) UTI (urinary tract infection) Qualifiers: Urinary tract infection type: acute cystitis Is this a current diagnosis for this admission?: YesPlan: likely 2/2 prostate Bxs; continue abx (3) Sepsis Qualifiers: Sepsis type: sepsis due to unspecified organism Qualified Code(s): A41.9 - Sepsis, unspecified organism Is this a current diagnosis for this admission?: YesPlan: due to Klebsiella; continue abx as above (4) BPH (benign prostatic hyperplasia) Qualifiers: Lower urinary tract symptom detail: urinary hesitancy Is this a current diagnosis for this admission?: YesPlan: stable; spontaneous micturition - Time Time Spent with patient: 35 or more minutes Medications reviewed and adjusted accordingly: Yes
[2017-05-12 05:14] LABS: HEMATOCRIT 39.1 % (37.9-51.0); HEMOGLOBIN 13.2 g/dL (13.5-17.0); HGB HCT DIFFERENCE 0.5; MEAN CORPUSCULAR HGB CONC 33.7 g/dL (32.0-36.0); MEAN CORPUSCULAR VOLUME 92 fl (80-97); RED BLOOD COUNT 4.25 10^6/uL (4.35-5.55); RED CELL DISTRIBUTION WIDTH 13.6 % (11.5-14.0); WHITE BLOOD COUNT 11.8 10^3/uL (4.0-10.5)
[2017-05-12 05:45] LABS: BAND NEUTROPHILS % (MANUAL) 3 % (3-5); BASOPHILS % (MANUAL) 0 % (0-2); EOSINOPHILS % (MANUAL) 3 % (0-6); LYMPHOCYTES % (MANUAL) 23 % (13-45); OVALOCYTES SLIGHT; POLYCHROMASIA SLIGHT; TOTAL CELLS COUNTED 100; TOXIC GRANULATION SLIGHT
[2017-05-12 05:46] LABS: POIKILOCYTOSIS SLIGHT; TEAR DROP CELLS SLIGHT
[2017-05-12] MEDS: HEPARIN SOD (PORCINE) 5,000 UNIT/ML 1 ML SYRINGE SUBCUT SCH (05:50)
[2017-05-12] MEDS: ACETAMINOPHEN 325 MG TABLET PO PRN (06:23)
[2017-05-12 07:47] VITALS: BP 123/75
--- NOTE | 2017-05-12 16:25 | PDOC DISCHARGE SUMMARY ---
General - Admit/Disc Date/PCP Admission Date/Primary Care Provider: 05/09/17 02:32 Discharge Date: 05/12/17 - Discharge Diagnosis (1) Bacteremia Is this a current diagnosis for this admission?: YesSummary: klebsiella from prostate Bx and UTI; finish 2 wks of abx with cipro for another 10d (2) UTI (urinary tract infection) Is this a current diagnosis for this admission?: YesSummary: as above (3) Sepsis Is this a current diagnosis for this admission?: YesSummary: resolved (4) BPH (benign prostatic hyperplasia) Is this a current diagnosis for this admission?: YesSummary: continue flomax and f/u with urology as instructed - Additional Information Resuscitation Status: Full Code Discharge Diet: As Tolerated Discharge Activity: Activity As Tolerated Home Medications: Tamsulosin HCl [Flomax 0.4 mg Cap.sr] 0.8 mg PO [id number] 05/09/17 Ciprofloxacin HCl [Cipro 500 mg Tablet] 500 mg PO BID #20 tablet 05/12/17 History of Present Illness Patient complains of: fevers/chills History of Present Illness: NATALIO BETHEA is a 56 year old male with a past medical history of 12 punch biopsies of the prostate 24 hours ago who is had recurrent fevers and chills presented to the emergency room earlier in the day discharge 3 hours ago returns with a fever of 102.7, tachycardia toxic appearing. Hospital Course Hospital Course: A repeat CBC reveals new neutropenia and bandemia. He started on empiric antibiotics and referred to the hospital for admission. CT abdomen pelvis earlier in the day unremarkable. he continues to sufffer rigors without true fevers >36hrs, last temp was night of his admission max 102.6. he was admitted and started on IV abx with good improvement. His blood and urine cultures all showing Klebsiella Pna resistant to sulfa, PCN and 1st gen cephs but susc to the rocephin and FQs. overall he feels better, denies chest pain, palpitations, n/v/d - in fact his stools are firming up. no further fevers and his vitals have stabilized. cultures show a FQ sensitive klebsiella in both blood and urine; stable for d/c home for continued abx another 10d. f/u urology as instructed. Physical Exam Vital Signs: Temp Pulse Resp BP Pulse Ox 97.6 F 86 16 123/75 95 05/12/17 09:49 05/12/17 09:49 05/12/17 09:49 05/12/17 09:49 05/12/17 09:49 Intake & Output 05/11/17 05/12/17 05/13/17 06:59 06:59 06:59 Intake Total 660 1461 Balance 660 1461 Weight 108.5 kg 108.5 kg General appearance: PRESENT: no acute distress, well-developed, well-nourished Respiratory exam: ABSENT: accessory muscle use Extremities exam: ABSENT: pedal edema Neurological exam: PRESENT: alert, awake Results Laboratory Results: 05/12/17 04:15 05/11/17 04:00 05/12/17 04:15 WBC 11.8 H RBC 4.25 L Hgb 13.2 L Hct 39.1 MCV 92 MCH 31.0 MCHC 33.7 RDW 13.6 Plt Count 133 L Seg Neutrophils % Not Reportable Lymphocytes % Not Reportable Monocytes % Not Reportable Eosinophils % Not Reportable Basophils % Not Reportable Absolute Neutrophils Not Reportable Absolute Lymphocytes Not Reportable Absolute Monocytes Not Reportable Absolute Eosinophils Not Reportable Absolute Basophils Not Reportable Impressions: Chest X-Ray 05/09/17 01:30 IMPRESSION: No acute radiographic finding in the chest. Qualifiers PATEINT BEING DISCHARGED WITH ANY OF THE FOLLOWING DIAGNOSIS?: No VTE patient discharged on overlapping Therapy?: No Reason(s) for not prescribing Overlap Therapy:: Not indicated Plan Discharge Plan: home with abx and f/u as noted above
== END 2017-05-12 11:18 | disposition home or self-care (01) | DRG 872 ==
LOC: ER 01:21 → EH 02:32 → UNDOADMIN 02:52 → 5 04:48
PROVIDERS: ADMIT Internal Medicine; ATTEND Internal Medicine
PROC: 3E0F73Z Introduction of Anti-inflammatory into Respiratory Tract, Via Natural or Artificial Opening (ICD-10-PCS; principal; 2017-05-10)
DX: A41.9 Sepsis, unspecified organism (principal); N39.0 Urinary tract infection, site not specified; N40.1 Benign prostatic hyperplasia with lower urinary tract symptoms; D70.9 Neutropenia, unspecified; B96.1 Klebsiella pneumoniae [K. pneumoniae] as the cause of diseases classified elsewhere; R19.7 Diarrhea, unspecified; Z16.29 Resistance to other single specified antibiotic; Z80.42 Family history of malignant neoplasm of prostate
CPT/HCPCS: 36415; 71010; 80048; 83605; 84484; 85025; 87040; 87493; 93005; 93010; 96365; 96368; 99285; J0696; J1644; J3370; J7030; J7620

== ENCOUNTER 2017-07-29 02:09 | Inpatient (IN) | payer BC, OTHER ==
[2017-07-29] MEDS ORDERED: METOCLOPRAMIDE HCL ORAL SOLN 10 MG/10 ML UDCUP PO ONE (02:44)
[2017-07-29] MEDS ORDERED: LIDOCAINE 2% VISCOUS SOLN 20 ML UDCUP PO ONE (02:44)
[2017-07-29] MEDS ORDERED: DIPHENHYDRAMINE HCL 25 MG/10 ML UDC PO ONE (02:44)
--- NOTE | 2017-07-29 02:46 | ER Document Report ---
ED GI/ - General Chief Complaint: Abdominal Pain >50 Stated Complaint: ABDOMINAL PAIN Time Seen by Provider: 07/29/17 02:34 Mode of Arrival: Ambulatory Information source: Patient Notes: Patient is a 56-year-old male who presents to the ER today for 1 day upper abdominal pain in the middle of his abdomen radiating slightly to the right side. Patient states that he has tried Gas-X which has just caused him to belch but not helped with the pain. He states that his upper abdomen feels distended. He denies any nausea, vomiting, diarrhea, any pattern of the pain with foods that he is noticed. He states that this is happened before but went away on its own. He did see his primary care provider who told him that it was probably gastroenteritis, but the patient states that the diarrhea never came that the doctor warned him about. He denies any fevers or chills that he knows of. TRAVEL OUTSIDE OF THE [place] IN LAST 30 DAYS: No - Related Data Allergies/Adverse Reactions: No Known Allergies Allergy (Verified 05/08/17 17:08) Past Medical History - General Information source: Patient - Social History Smoking Status: Unknown if Ever Smoked Family History: Malignancy - Prostate cancer Patient has suicidal ideation: No Patient has homicidal ideation: No Renal/ Medical History: Denies: Hx Peritoneal Dialysis Psychiatric Medical History: Denies: Hx Depression Past Surgical History: Reports: Hx Orthopedic Surgery - Immunizations Hx Diphtheria, Pertussis, Tetanus Vaccination: Yes Review of Systems - Review of Systems Constitutional: No symptoms reported EENT: No symptoms reported Cardiovascular: No symptoms reported Respiratory: No symptoms reported Gastrointestinal: See HPI Genitourinary: No symptoms reported Male Genitourinary: No symptoms reported Musculoskeletal: No symptoms reported Skin: No symptoms reported Hematologic/Lymphatic: No symptoms reported Neurological/Psychological: No symptoms reported Physical Exam - Vital signs Vitals: Temp Pulse Resp BP Pulse Ox 98.0 F 75 16 157/92 H 97 07/29/17 02:14 07/29/17 02:14 07/29/17 02:14 07/29/17 02:14 07/29/17 02:14 - Notes Notes: PHYSICAL EXAMINATION: GENERAL: Uncomfortable appearing, but in no acute distress. HEAD: Atraumatic, normocephalic. EYES: Pupils equal round and reactive to light, extraocular movements intact, sclera anicteric, conjunctiva are normal. NECK: Normal range of motion, supple without lymphadenopathy LUNGS: CTAB and equal. No wheezes rales or rhonchi. HEART: Regular rate and rhythm without murmurs ABDOMEN: Soft, right upper quadrant, epigastric tenderness. No guarding, no rebound BACK: no vertebral tenderness, normal ROM GI/: no CVA tenderness EXTREMITIES: Normal range of motion, no pitting edema. No cyanosis. NEUROLOGICAL: Cranial nerves grossly intact. Normal sensory/motor exams. PSYCH: Normal mood, normal affect. SKIN: Warm, Dry, normal turgor, no rashes or lesions noted Course - Re-evaluation Re-evalutation: 07/29/17 06:39 White count is 17.3 with elevated neutrophils, total bilirubin is mildly elevated at 2.1, patient's pain is controlled with morphine. Ultrasound of the right upper quadrant reveals sludge in the gallbladder but nothing else. CAT scan of the abdomen with contrast reveals pericholecystic fluid, with elevated white count, fluid and sludge in the gallbladder I did call the surgeon concrete boom operator Dr. Butler who is coming to evaluate the patient at this time. Patient is comfortably resting in room. - Vital Signs Vital signs: Temp Pulse Resp BP Pulse Ox 98.0 F 75 16 145/87 H 92 07/29/17 02:14 07/29/17 02:14 07/29/17 04:41 07/29/17 06:01 07/29/17 06:02 - Laboratory Result Diagrams: 07/29/17 02:38 07/29/17 02:38 Laboratory results interpreted by me: 07/29/17 07/29/17 02:38 02:38 WBC 17.3 H RDW 14.2 H Seg Neutrophils % 80.5 H Lymphocytes % 9.2 L Absolute Neutrophils 13.9 H Absolute Monocytes 1.6 H Glucose 135 H Total Bilirubin 2.1 H Discharge - Discharge Clinical Impression: Cholecystitis Condition: Stable Disposition: ADMITTED INPATIENT Admitting Provider: Surgicalist
[2017-07-29 03:01] LABS: ABSOLUTE BASOPHILS # (AUTO) 0.1 10^3/uL (0.0-0.2); ABSOLUTE EOSINOPHILS # (AUTO) 0.1 10^3/uL (0.0-0.6); ABSOLUTE LYMPHOCYTES (AUTO) 1.6 10^3/uL (0.5-4.7); ABSOLUTE MONOCYTES (AUTO) 1.6 10^3/uL (0.1-1.4); ABSOLUTE NEUT (AUTO) 13.9 10^3/uL (1.7-8.2); BASOPHILS % (AUTO) 0.4 % (0-2); EOSINOPHILS % (AUTO) 0.4 % (0-6); HEMATOCRIT 45.9 % (37.9-51.0); HGB HCT DIFFERENCE 2.1; LYMPHOCYTES % (AUTO) 9.2 % (13-45); MEAN CORPUSCULAR HEMOGLOBIN 31.4 pg (27.0-33.4); MEAN CORPUSCULAR HGB CONC 34.9 g/dL (32.0-36.0); MEAN CORPUSCULAR VOLUME 90 fl (80-97); MONOCYTES % (AUTO) 9.5 % (3-13); RED CELL DISTRIBUTION WIDTH 14.2 % (11.5-14.0); SEGMENTED NEUTROPHILS % (AUTO) 80.5 % (42-78); WHITE BLOOD COUNT 17.3 10^3/uL (4.0-10.5)
[2017-07-29 03:06] LABS: ALANINE AMINOTRANSFERASE 29 U/L (21-72); ALBUMIN 4.3 g/dL (3.5-5.0); ALKALINE PHOSPHATASE 72 U/L (38-126); ANION GAP 10 (5-19); ASPARTATE AMINO TRANSFERASE 20 U/L (17-59); BILIRUBIN,DIRECT 0.4 mg/dL (0.0-0.4); BILIRUBIN,TOTAL 2.1 mg/dL (0.2-1.3); BLOOD UREA NITROGEN 14 mg/dL (7-20); CALCIUM 9.9 mg/dL (8.4-10.2); CARBON DIOXIDE 28 mmol/L (22-30); CHLORIDE 103 mmol/L (98-107); CREATINE KINASE 60 U/L (55-170); CREATININE RESULT 0.74 mg/dL (0.52-1.25); GLUCOSE 135 mg/dL (75-110); POTASSIUM 3.9 mmol/L (3.6-5.0); SODIUM 141.3 mmol/L (137-145); TOTAL PROTEIN 7.1 g/dL (6.3-8.2)
[2017-07-29 03:18] LABS: CREATINE KINASE MB 0.53 ng/mL (<4.55)
[2017-07-29 03:19] LABS: TROPONIN I < 0.012 ng/mL
[2017-07-29 03:20] LABS: AMORPHOUS SEDIMENT,URINE TRACE /HPF; APPEARANCE,URINE CLOUDY; BILIRUBIN,URINE NEGATIVE (NEGATIVE); GLUCOSE, URINE NEGATIVE (NEGATIVE); KETONES,URINE NEGATIVE (NEGATIVE); LEUKOCYTE ESTERASE,URINE NEGATIVE (NEGATIVE); NITRITE,URINE NEGATIVE (NEGATIVE); PROTEIN,URINE NEGATIVE (NEGATIVE); URINE SPECIFIC GRAVITY 1.013; UROBILINOGEN,URINE NEGATIVE mg/dL (<2.0)
[2017-07-29] MEDS ORDERED: MORPHINE SULFATE 10 MG/ML INJ IV ONE ×2 (03:28→05:21)
--- NOTE | 2017-07-29 04:30 | RADIOLOGY REPORT (SQ) ---
EXAM DESCRIPTION: U/S ABDOMEN LIMITED W/O DOP COMPLETED DATE/TIME: 07/29/2017 3:56 am REASON FOR STUDY: epigastric/ruq pain COMPARISON: CT, 05/08/2017. TECHNIQUE: Dynamic and static grayscale images acquired of the abdomen and recorded on PACS. Additio nal selected color Doppler and spectral images recorded. LIMITATIONS: None. FINDINGS: PANCREAS: Obscured. LIVER: No masses. Echotexture normal. LIVER VASCULATURE: Normal directional flow of the main portal vein and hepatic veins. GALLBLADDER: Small gallbladder sludge. ULTRASOUND-DETECTED SOL'S SIGN: Negative. INTRAHEPATIC DUCTS AND COMMON DUCT: CBD and intrahepatic ducts normal caliber. No filling defects. INFERIOR VENA CAVA: Normal flow. AORTA: No aneurysm. RIGHT KIDNEY: Normal size. Normal echogenicity. No solid or suspicious masses. No hydronephrosis. No calcifications. 1.2 cm hypoechoic avascular right renal lesion consistent with a likely benign cyst as correlated with CT, 05/08/2017. PERITONEAL AND RIGHT PLEURAL SPACE: No ascites or effusions. OTHER: No other significant findings. IMPRESSION: No acute findings. Small gallbladder sludge. Obscured pancreas. TECHNICAL DOCUMENTATION: JOB ID: [id number] [employer]- All Rights Reserved
--- NOTE | 2017-07-29 06:12 | RADIOLOGY REPORT (SQ) ---
EXAM DESCRIPTION: CT ABD/PELVIS WITH IV ONLY COMPLETED DATE/TIME: 07/29/2017 5:43 am REASON FOR STUDY: epigastric/ruq pain, WBC 17.5, nausea COMPARISON: None. TECHNIQUE: CT scan of the abdomen and pelvis performed using helical scanning technique with dynamic intravenous contrast injection. No oral contrast. Images reviewed with lung, soft tissue, and bone windows. Reconstructed coronal and sagittal MPR images reviewed. Delayed images for evaluation of the urinary system also acquired. All images stored on PACS. All CT scanners at this facility use dose modulation, iterative reconstruction, and/or weight based d osing when appropriate to reduce radiation dose to as low as reasonably achievable (ALARA). [facility]: Dose Right [facility]: CareDose [facility]: Dose Right [facility]: Teradose 4D [facility]: 404 Found! CONTRAST TYPE AND DOSE: contrast/concentration: Isovue 370.00 mg/ml; Total Contrast Delivered: 100.0 ml; Total Saline Delivered: 72.0 ml RENAL FUNCTION: Creatinine 0.7 RADIATION DOSE: Up-to-date CT equipment and radiation dose reduction techniques were employed. CTDIv ol: 19.3 mGy. DLP: 2230 mGy-cm.. LIMITATIONS: None. FINDINGS: LOWER CHEST: No significant findings. No nodules or infiltrates. LIVER: Normal size. No masses. No dilated ducts. SPLEEN: Normal size. No focal lesions. PANCREAS: No masses. No significant calcifications. No adjacent inflammation or peripancreatic fluid collections. Pancreatic duct not dilated. GALLBLADDER: No identified stones by CT criteria. Minimal per nonspecific pericholecystic fluid. ADRENAL GLANDS: No significant masses or asymmetry. RIGHT KIDNEY AND URETER: No solid masses. No significant calcifications. No hydronephrosis or hyd roureter. Likely benign 1.2 cm cyst not definitively characterize. LEFT KIDNEY AND URETER: No solid masses. No significant calcifications. No hydronephrosis or hydr oureter. AORTA AND VESSELS: No aneurysm. No dissection. Renal arteries, SMA, celiac without stenosis. RETROPERITONEUM: No retroperitoneal adenopathy, hemorrhage or masses. BOWEL AND PERITONEAL CAVITY: No masses or inflammatory changes. No free fluid or peritoneal masses. Colonic diverticulosis. APPENDIX: No evidence of appendicitis. PELVIS: No mass. No free fluid. Normal bladder. 5.7 cm diameter prostate. ABDOMINAL WALL: Small left inguinal hernia of fat. 2.1 cm partially imaged lipoma -gliosis of the me dial left sartorius. BONES: Mild L5-S1 disc desiccation. OTHER: No other significant finding. IMPRESSION: 1. Small nonspecific pericholecystic fluid. 2. Colonic diverticulosis. 5.7 cm diamet er prostate. TECHNICAL DOCUMENTATION: JOB ID: [id number] Quality ID # [id number]: Final reports with documentation of one or more dose reduction techniques (e.g., Au tomated exposure control, adjustment of the mA and/or kV according to patient size, use of iterative reconstruction technique) 2010 [employer]- All Rights Reserved
[2017-07-29] MEDS ORDERED: SUCCINYLCHOLINE CHLORIDE INJ 200 MG/10 ML VIAL ONE (07:49)
[2017-07-29] MEDS ORDERED: ROCURONIUM BROMIDE INJ 50 MG/5 ML VIAL IV ONE (07:49)
--- NOTE | 2017-07-29 08:23 | HISTORY AND PHYSICAL E ---
History and Physical NAME: NATALIO BETHEA : 1960 AGE: 56Y ADMITTED: 07/29/2017 ROOM: ED19 CHIEF COMPLAINT: Abdominal pains. HISTORY OF PRESENT ILLNESS: This is a 56-year-old male who complained of severe epigastric pains about 36 hours ago. The pain has been persistent and associated with nausea. He went to the emergency room this morning and noted to have sludge in the gallbladder and pericholecystic fluid. His white count is elevated to 17,000 with a bilirubin of 2.1 and alkaline phosphatase are normal. We just ordered a STAT lipase. PAST HISTORY: 1. History of benign prostatic hypertrophy on Flomax. 2. Had left eye surgery and knee surgery in the past. ALLERGIES: None known. FAMILY HISTORY: Noncontributory. SOCIAL HISTORY: Denies smoking, drinking, or drug use. REVIEW OF SYSTEMS: RESPIRATORY: Denies any chest pain, shortness of breath. HEENT: No hearing problems. Had surgery on the left eye. No sore throat. No cough. GASTROINTESTINAL: As in HPI. Complaining of severe epigastric pains. MUSCULOSKELETAL: Knee pains. GENITOURINARY: Has some occasional difficulty voiding. He is on Flomax for this. Incidentally, the CT scan showed a 5.7 cm prostate. NEUROLOGIC: No seizures or syncopal episodes. HEMATOLOGIC: Easy bruisability. No lymph node enlargements. SKIN: No rash. The rest of the systems are negative. PHYSICAL EXAMINATION: GENERAL: Well-developed, well-nourished, slightly on the overweight side, complaining of epigastric pains. Alert and oriented x3. NECK: Supple. No thyromegaly. LUNGS: Clear. HEART: Regular sinus rhythm. ABDOMEN: Soft with tenderness in the epigastric area. Patient just had morphine and pains somewhat decreased. Just some minimal tenderness in the right upper quadrant. EXTREMITIES: No edema. IMPRESSION: Acute calculous cholecystitis. PLAN: Check lipase to make sure there is no pancreatitis since his bilirubin is elevated at 2.1, although his LFTs are normal. The plan is to keep him n.p.o. and patient will be re-evaluated by Dr. Padilla, the surgeon front facer. DICTATING PHYSICIAN: DARWIN JIMENEZ M.D. [id number] PHY#: [id number] ID: [id number] JOB#: [id number] ACCT: [id number] cc:Santy GIMENEZ MD
--- NOTE | 2017-07-29 10:15 | EKG REPORT ---
SEVERITY:- ABNORMAL ECG - SINUS RHYTHM VENTRICULAR PREMATURE COMPLEX INFERIOR INFARCT, AGE INDETERMINATE : Confirmed by: Boston Barraza 29-Jul-2017 10:15:24
--- NOTE | 2017-07-29 10:25 | PDOC H&P ---
History of Present Illness Admission Date/PCP: 07/29/17 07:30 Patient complains of: Abdominal pain History of Present Illness: NATALIO BETHEA is a 56 year old male with history of gallbladder problems a number of years ago for which he had been recommended cholecystectomy. However patient decided to manage it with prayer and dietary changes. He has not had any further problems up until 2 nights ago when he developed diffuse abdominal pain of acute onset with nausea. The pain has now localized to the right upper quadrant. Patient notes that it radiates to his back. He denies any jaundice denies any fever denies any diarrhea. He denies any alcohol abuse. His only medical issues have been prostate related. He apparently has an elevated PSA and as had a biopsy in the past. Although he experiences urinary straining he denies any burning with urination. Past Medical History Cardiac Medical History: Reports: None Pulmonary Medical History: Reports: None EENT Medical History: Reports: None Neurological Medical History: Reports: None Endocrine Medical History: Reports: None Renal/ Medical History: Reports: None Malignancy Medical History: Reports: None GI Medical History: Reports: Other - History of biliary colic in the remote past. Psychiatric Medical History: Reports: None Denies: Depression Hematology: Reports: None Past Surgical History Past Surgical History: Reports: Orthopedic Surgery Social History Smoking Status: Former Smoker - Quit over 30 years ago. Frequency of Alcohol Use: None Hx Recreational Drug Use: No Drugs: None Hx Prescription Drug Abuse: No - Advance Directive Resuscitation Status: Full Code Family History Family History: Malignancy - Prostate cancer Parental Family History Reviewed: No Children Family History Reviewed: No Sibling(s) Family History Reviewed.: No Medication/Allergy Home Medications: Acetaminophen [Tylenol Extra Strength] 500 mg PO Q6HP PRN 07/29/17 Tamsulosin HCl [Flomax 0.4 mg Cap.sr] 0.8 mg PO DAILY 07/29/17 Allergies/Adverse Reactions: No Known Allergies Allergy (Verified 05/08/17 17:08) Physical Exam Vital Signs: Temp Pulse Resp BP Pulse Ox 98.5 F 81 18 162/86 H 98 07/29/17 09:30 07/29/17 09:30 07/29/17 09:30 07/29/17 09:30 07/29/17 09:30 Intake & Output 09/13/17 09/14/17 09/15/17 06:59 06:59 06:59 Weight 100.5 kg General appearance: PRESENT: no acute distress, cooperative Eye exam: PRESENT: conjunctiva pink Neck exam: PRESENT: other - Supple with no tenderness Respiratory exam: PRESENT: clear to auscultation arti Cardiovascular exam: PRESENT: RRR GI/Abdominal exam: PRESENT: other - Soft, mildly distended, very mild right upper quadrant abdominal tenderness without peritoneal signs. Gentrourinary exam: PRESENT: other - No scrotal masses. No testicular masses. No palpable hernia defects with Valsalva. Extremities exam: PRESENT: other - No swelling. Neurological exam: PRESENT: alert, awake Psychiatric exam: PRESENT: appropriate affect Skin exam: PRESENT: warm Results Impressions: Abdomen Ultrasound 07/29/17 02:44 IMPRESSION: No acute findings. Small gallbladder sludge. Obscured pancreas. Abdomen/Pelvis CT 07/29/17 05:02 IMPRESSION: 1. Small nonspecific pericholecystic fluid. 2. Colonic diverticulosis. 5.7 cm diameter prostate. Assessment & Plan - Diagnosis (1) Cholecystitis Is this a current diagnosis for this admission?: Yes Plan: CT scan demonstrates pericholecystic fluid. The gallbladder does appear distended. Ultrasound demonstrated positive Carrasco sign with gallbladder sludge. He has leukocytosis. No other etiology of his abdominal pain found on ultrasound and CT scan. Patient would likely cholecystitis. I will plan laparoscopic cholecystectomy with intraoperative cholangiogram in light of his elevated total bilirubin. I have discussed with the patient the risk and benefits of the procedure including risk of conversion to a open procedure, mistaken diagnosis, bile duct and intestinal injury, bleeding, infection, postcholecystectomy diarrhea. Patient understands and agrees to proceed. (2) Left inguinal hernia Is this a current diagnosis for this admission?: Yes Plan: Noted on CT scan. Small. Unable to palpate on exam. Patient completely asymptomatic. I have informed the patient of this hernia and asked him to just keep an eye on his left groin. if he were to develop any symptoms in relationship to this hernia he is to come back for evaluation for surgical repair. (3) Kidney cyst, acquired Is this a current diagnosis for this admission?: Yes Plan: Small right kidney cyst noted on CT scan. Patient to follow-up with his urologist for his chronic prostate problems. I have asked him to note this finding to the urologist.
[2017-07-29] MEDS ORDERED: NORMAL SALINE 1000 ML 1,000 ML IV PRN (12:14)
[2017-07-29] MEDS: MORPHINE SULFATE 10 MG/ML INJ IV PRN ×2 (12:30→14:37)
[2017-07-29] MEDS ORDERED: AMPICILLIN SODIUM/SULBACTAM NA 3 GM in NORMAL SALINE 100 ML IV ONE (13:00)
--- NOTE | 2017-07-29 13:07 | PDOC PROGRESS REPORT ---
Subjective Progress Note for:: 07/29/17 Physical Exam Vital Signs: Temp Pulse Resp BP Pulse Ox 99.2 F 80 18 161/92 H 96 07/29/17 11:24 07/29/17 12:07 07/29/17 11:24 07/29/17 11:24 07/29/17 11:24 Results Impressions: Abdomen Ultrasound 07/29/17 02:44 IMPRESSION: No acute findings. Small gallbladder sludge. Obscured pancreas. Abdomen/Pelvis CT 07/29/17 05:02 IMPRESSION: 1. Small nonspecific pericholecystic fluid. 2. Colonic diverticulosis. 5.7 cm diameter prostate. Assessment & Plan - Diagnosis (1) Cholecystitis Is this a current diagnosis for this admission?: Yes (2) Left inguinal hernia Is this a current diagnosis for this admission?: Yes (3) Kidney cyst, acquired Is this a current diagnosis for this admission?: Yes (4) Abnormal EKG Is this a current diagnosis for this admission?: Yes Plan: EKG with evidence of inferior wall HI unknown duration. Likely to have occurred in the past. Will check troponin and will obtain hospitalist consult. Will hold off surgery until hospitalist has evaluated the patient.
[2017-07-29 13:41] LABS: ANION GAP 9 (5-19); BLOOD UREA NITROGEN 13 mg/dL (7-20); CALCIUM 9.7 mg/dL (8.4-10.2); CARBON DIOXIDE 26 mmol/L (22-30); CHLORIDE 104 mmol/L (98-107); GLUCOSE 113 mg/dL (75-110); MAGNESIUM 1.7 mg/dL (1.6-2.3)
[2017-07-29] MEDS ORDERED: ACETAMINOPHEN 650 MG SUPP.RECT PR PRN (14:39)
[2017-07-29] MEDS ORDERED: ACETAMINOPHEN 650 MG SUPP.RECT PR ONE (15:00)
[2017-07-29] MEDS ORDERED: ACETAMINOPHEN 650 MG SUPP.RECT PR SCH (16:00)
[2017-07-29] MEDS ORDERED: BUPIVACAINE HCL 0.25 % INJ/PF (2.5 MG/1 ML) 30 ML VIAL ONE (16:26)
--- NOTE | 2017-07-29 16:35 | PDOC CONSULTATION ---
Consultation Consult Date: 07/29/17 Attending physician:: PABLITO SAAVEDRA Consult reason:: abn ekg History of Present Illness Admission Date/PCP: 07/29/17 11:50 History of Present Illness: NATALIO BETHEA is a 56 year old male with history of gallbladder problems a number of years ago for which he had been recommended cholecystectomy. However patient decided to manage it with prayer and dietary changes. He has not had any further problems up until 2 nights ago when he developed diffuse abdominal pain of acute onset with nausea. The pain has now localized to the right upper quadrant. Patient notes that it radiates to his back. During his hospital stay here, patient has now developed fever, chills, and leukocytosis consistent with acute cholecystitis. Patient had an abnormal EKG. For which the hospitalist service was consulted. Patient reports that he is able to walk several flights of stairs without becoming short of breath. He does not engage in regular structured physical activity, but reports he is quite active without any difficulty. Patient has no prior risk factors and denies any history of hypertension, hyperlipidemia, diabetes, and there is no family history of heart disease. Currently patient is quite ill and obtaining history from him is somewhat problematic in that he is slightly confused having received pain medication. His mother is at bedside however and confirms the history. Past Medical History Cardiac Medical History: Reports: None Pulmonary Medical History: Reports: None EENT Medical History: Reports: None Neurological Medical History: Reports: None Endocrine Medical History: Reports: None Renal/ Medical History: Reports: Other - BPH Malignancy Medical History: Reports: None GI Medical History: Reports: Other - History of biliary colic in the remote past. Psychiatric Medical History: Reports: None Denies: Depression Hematology: Reports: None Past Surgical History Past Surgical History: Reports: Orthopedic Surgery Social History Smoking Status: Former Smoker - Quit over 30 years ago. Frequency of Alcohol Use: None Hx Recreational Drug Use: No Drugs: None Hx Prescription Drug Abuse: No - Advance Directive Resuscitation Status: Full Code Surrogate healthcare decision maker:: SisterYessica Family History Family History: DM, Hypertension, Malignancy - Prostate cancer Parental Family History Reviewed: Yes Children Family History Reviewed: Yes Sibling(s) Family History Reviewed.: Yes Medication/Allergy Home Medications: Acetaminophen [Tylenol Extra Strength] 500 mg PO Q6HP PRN 07/29/17 Tamsulosin HCl [Flomax 0.4 mg Cap.sr] 0.8 mg PO DAILY 07/29/17 Allergies/Adverse Reactions: No Known Allergies Allergy (Verified 05/08/17 17:08) Review of Systems Constitutional: PRESENT: chills, fever(s), weakness. ABSENT: headache(s), weight gain, weight loss Eyes: ABSENT: visual disturbances Ears: ABSENT: hearing changes Cardiovascular: ABSENT: chest pain, dyspnea on exertion, edema, orthropnea, palpitations Respiratory: ABSENT: cough, dyspnea, hemoptysis, sputum Gastrointestinal: PRESENT: as per HPI, abdominal pain, nausea, vomiting. ABSENT : constipation, diarrhea, hematemesis, hematochezia, melena Genitourinary: ABSENT: dysuria, hematuria Musculoskeletal: ABSENT: joint swelling Integumentary: ABSENT: rash, wounds Neurological: ABSENT: abnormal gait, abnormal speech, confusion, dizziness, focal weakness, syncope Psychiatric: ABSENT: anxiety, depression, homidical ideation, suicidal ideation Endocrine: ABSENT: cold intolerance, heat intolerance, polydipsia, polyuria Hematologic/Lymphatic: ABSENT: easy bleeding, easy bruising Physical Exam Vital Signs: Temp Pulse Resp BP Pulse Ox 99.2 F 80 18 161/92 H 96 07/29/17 11:24 07/29/17 12:07 07/29/17 11:24 07/29/17 11:24 07/29/17 11:24 General appearance: PRESENT: obese, well-developed, well-nourished, other - Ill- appearing Head exam: PRESENT: atraumatic, normocephalic Eye exam: PRESENT: conjunctiva pink, EOMI. ABSENT: PERRLA - Left pupillary defect secondary to prior trauma, scleral icterus Ear exam: PRESENT: normal external ear exam Mouth exam: PRESENT: moist, tongue midline Neck exam: ABSENT: JVD, lymphadenopathy, thyromegaly, tracheal deviation Respiratory exam: PRESENT: clear to auscultation arti. ABSENT: rales, rhonchi, wheezes Cardiovascular exam: PRESENT: RRR, +S1, +S2. ABSENT: diastolic murmur, gallop, rubs, systolic murmur Pulses: PRESENT: normal dorsalis pedis pul Vascular exam: PRESENT: normal capillary refill GI/Abdominal exam: PRESENT: normal bowel sounds, soft. ABSENT: distended, guarding, mass, organolmegaly, rebound, tenderness Rectal exam: PRESENT: deferred Extremities exam: PRESENT: full ROM. ABSENT: calf tenderness, clubbing, pedal edema Neurological exam: PRESENT: alert, awake, oriented to person, oriented to place , oriented to time, oriented to situation, CN II-XII grossly intact. ABSENT: motor sensory deficit Psychiatric exam: PRESENT: appropriate affect, normal mood. ABSENT: homicidal ideation, suicidal ideation Skin exam: PRESENT: dry, intact, warm, other - Flushed and hot. ABSENT: cyanosis, rash Results Laboratory Results: 07/29/17 07/29/17 07/29/17 02:38 02:38 02:38 WBC 17.3 H Hgb 16.0 Hct 45.9 Plt Count 256 INR 0.92 Sodium Potassium Chloride Carbon Dioxide Anion Gap BUN Creatinine Glucose Calcium Magnesium Total Bilirubin 2.1 H Direct Bilirubin 0.4 AST 20 ALT 29 Alkaline Phosphatase 72 Creatine Kinase 60 Troponin I Albumin 4.3 Lipase 07/29/17 07/29/17 07/29/17 02:38 02:38 11:19 WBC Hgb Hct Plt Count INR Sodium Potassium Chloride Carbon Dioxide Anion Gap BUN Creatinine Glucose Calcium Magnesium Total Bilirubin Direct Bilirubin AST ALT Alkaline Phosphatase Creatine Kinase Troponin I < 0.012 < 0.012 Albumin Lipase 84.7 07/29/17 11:19 WBC Hgb Hct Plt Count INR Sodium 139.0 Potassium 4.0 Chloride 104 Carbon Dioxide 26 Anion Gap 9 BUN 13 Creatinine 0.70 Glucose 113 H Calcium 9.7 Magnesium 1.7 Total Bilirubin Direct Bilirubin AST ALT Alkaline Phosphatase Creatine Kinase Troponin I Albumin Lipase EKG Comments: Q waves inferiorly old 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 Small gallbladder sludge. Obscured pancreas. Abdomen/Pelvis CT 07/29/17 05:02 IMPRESSION: 1. Small nonspecific pericholecystic fluid. 2. Colonic diverticulosis. 5.7 cm diameter prostate. Status: Imported from PACS Assessment & Plan - Diagnosis (1) Cholecystitis Is this a current diagnosis for this admission?: Yes Plan: Defer treatment of this to the primary surgical team and all complications and issues resulting from his cholecystitis. (2) Sepsis Qualifiers: Sepsis type: sepsis due to unspecified organism Qualified Code(s): A41.9 - Sepsis, unspecified organism Is this a current diagnosis for this admission?: Yes Plan: Defer current management to the surgical team Recommend general surviving sepsis guidelines including maintaining a map of greater than 65. 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 These Q waves are however present on his EKG in April of this year. I do not have an EKG from before this time. This represents an acceptable level of risk for current surgery. I would also consider this surgical procedure urgent if not becoming emergent due to patient' s developing sepsis. (4) BPH (benign prostatic hyperplasia) Qualifiers: Lower urinary tract symptom detail: urinary hesitancy Is this a current diagnosis for this admission?: Yes Plan: Continue Flomax (5) Obesity (BMI 30.0-34.9) Is this a current diagnosis for this admission?: Yes - Time Time Spent: 30 to 50 Minutes Medications reviewed and adjusted accordingly: Yes - Plan Summary Plan Summary: We appreciate the opportunity to consult on interesting patient such as this. We are available at any time for reconsultation, but currently patient is receiving excellent care from primary team and we will sign off.
[2017-07-29] MEDS ORDERED: DEXAMETHASONE SOD PHOSPHATE INJ 4 MG/1 ML VIAL ONE (16:52)
[2017-07-29] MEDS ORDERED: ONDANSETRON HCL INJ/PF 4 MG/2 ML SDV ONE (16:52)
[2017-07-29] MEDS ORDERED: MIDAZOLAM 2 MG/2 ML INJ ONE (16:52)
[2017-07-29] MEDS ORDERED: FENTANYL CITRATE INJ/PF 250 MCG/5 ML AMPULE ONE (16:52)
[2017-07-29] MEDS ORDERED: MORPHINE SULFATE 10 MG/ML INJ ONE (16:53)
[2017-07-29] MEDS ORDERED: PROPOFOL INJ 200 MG/20 ML VIAL IV ONE (16:53)
[2017-07-29] MEDS ORDERED: IBUPROFEN INJ 800 MG/8 ML VIAL IV ONE (16:53)
[2017-07-29] MEDS ORDERED: AMPICILLIN SOD/SULBACTAM 1.5 GM VIAL ONE (16:57)
[2017-07-29] MEDS ORDERED: AMPICILLIN SOD/SULBACTAM 3 GM VIAL ONE (16:59)
[2017-07-29] MEDS ORDERED: EPHEDRINE SULFATE INJ 50 MG/1 ML AMPULE ONE (17:24)
[2017-07-29] MEDS ORDERED: OXYCODONE-ACETAMINOPHEN 5-325 MG TABLET PO PRN ×2 (17:59)
[2017-07-29] MEDS ORDERED: MEPERIDINE HCL/PF INJ 25 MG/1 ML DISP.SYRIN IV PRN (17:59)
[2017-07-29] MEDS ORDERED: MORPHINE SULFATE 10 MG/ML INJ IV PRN (17:59)
[2017-07-29] MEDS ORDERED: FENTANYL CITRATE INJ/PF 100 MCG/2 ML AMPUL IV PRN ×3 (17:59)
[2017-07-29] MEDS ORDERED: PROMETHAZINE HCL INJ 25 MG/1 ML VIAL IV PRN ×2 (17:59)
[2017-07-29] MEDS ORDERED: DIPHENHYDRAMINE HCL 50 MG/ML VIAL IV PRN (17:59)
[2017-07-29] MEDS ORDERED: AMPICILLIN SODIUM/SULBACTAM NA 3 GM in NORMAL SALINE 100 ML IV SCH (18:00)
--- NOTE | 2017-07-29 18:43 | Operative Report ---
Operative Report DATE OF SURGERY: 07/29/17 PREOPERATIVE DIAGNOSIS: Cholecystitis POSTOPERATIVE DIAGNOSIS: Gangrenous cholecystitis OPERATION: Laparoscopic cholecystectomy SURGEON: PABLITO SAAVEDRA ANESTHESIA: GA TISSUE REMOVED OR ALTERED: Gallbladder COMPLICATIONS: None ESTIMATED BLOOD LOSS: Minimal INTRAOPERATIVE FINDINGS: Thickened inflamed gallbladder wall with gangrenous changes with foul-smelling fluid within the gallbladder PROCEDURE: Informed consent was obtained. Patient was brought to the operating room placed operating table in supine position. After satisfactory induction of general anesthesia, patient's abdomen was prepped and draped in usual sterile fashion. A supraumbilical midline incision was made and dissection carried down to the fascia the peritoneal cavity entered without difficulty. Husain trocar was inserted. Pneumoperitoneum produced good patient toleration. 5 mm trocar was placed in the subxiphoid location.Two 5 mm trochars were placed in the right subcostal location. The gallbladder was distended and its wall appeared markedly inflamed with gangrenous changes. The contents of the gallbladder was aspirated with an aspiration needle yielding cloudy fluid with a foul odor. The gallbladder was grasped and retracted cephalad over the dome of the liver. The infundibulum of the gallbladder was grasped retracted laterally and inferiorly thus exposing calot's triangle. The marked inflammatory changes at calot's triangle made the dissection difficult. the cystic duct gallbladder junction was clearly identified. With the gangrenous changes extending to the cystic duct I felt that the cystic duct was too fragile to attempt a cholangiogram. Rather than risk a cystic duct stump leak by them manipulating a very fragile cystic duct, intraoperative cholangio-gram was not performed. And the cystic duct was clipped and divided. Cystic artery was likewise taken. The gallbladder was taken off the gallbladder bed using the hook electrocautery technique. There was a posterior branch of the cystic artery which was also clipped and divided. There was spillage of gallbladder contents during the procedure due to the fragility of the gangrenous gallbladder wall. The gallbladder was removed with an Endobag through the Husain trocar site fascial defect. The operative field was copiously irrigated and irrigant aspirated out. Irrigation fluid was perfectly clear at the end of the case. Hemostasis appeared excellent. All trochars were removed under the direct vision a laparoscope to ensure hemostasis. The Husain trocar site fascial defect was closed with interrupted Vicryl sutures. All skin incisions were closed with subcuticular interrupted Monocryl sutures. Marcaine was injected at the port sites. Patient had initial hypotension upon induction of anesthesia. Patient's hemodynamics improved by the end of the case. Patient was taken to the recovery area in stable condition.
[2017-07-29] MEDS ORDERED: ERTAPENEM SODIUM 1 GM in NORMAL SALINE 50 ML IV ONE (19:00)
[2017-07-29] MEDS: NORMAL SALINE 1000 ML 1,000 ML IV PRN (21:57)
--- NOTE | 2017-07-29 23:56 | PDOC PROGRESS REPORT ---
Subjective Progress Note for:: 07/29/17 Subjective:: Feels much better. Physical Exam Vital Signs: Temp Pulse Resp BP Pulse Ox 97.7 F 90 16 98/62 L 96 07/29/17 22:56 07/29/17 22:56 07/29/17 22:56 07/29/17 22:56 07/29/17 22:56 Intake & Output 07/28/17 07/29/17 07/30/17 06:59 06:59 06:59 Intake Total 2700 Output Total 1050 Balance 1650 General appearance: PRESENT: no acute distress, cooperative Respiratory exam: PRESENT: clear to auscultation arti Cardiovascular exam: PRESENT: RRR GI/Abdominal exam: PRESENT: other - Soft, nondistended, minimal tenderness. Results Impressions: Abdomen Ultrasound 07/29/17 02:44 IMPRESSION: No acute findings. Small gallbladder sludge. Obscured pancreas. Abdomen/Pelvis CT 07/29/17 05:02 IMPRESSION: 1. Small nonspecific pericholecystic fluid. 2. Colonic diverticulosis. 5.7 cm diameter prostate. Assessment & Plan - Diagnosis (1) Cholecystitis Is this a current diagnosis for this admission?: Yes Plan: Gangrenous cholecystitis. Status post laparoscopic cholecystectomy. Patient looks very good. (2) Left inguinal hernia Is this a current diagnosis for this admission?: Yes (3) Kidney cyst, acquired Is this a current diagnosis for this admission?: Yes (4) Abnormal EKG Is this a current diagnosis for this admission?: Yes
[2017-07-30 06:50] LABS: HEMATOCRIT 38.9 % (37.9-51.0); HGB HCT DIFFERENCE 1.3; MEAN CORPUSCULAR HEMOGLOBIN 31.2 pg (27.0-33.4); MEAN CORPUSCULAR HGB CONC 34.3 g/dL (32.0-36.0); MEAN CORPUSCULAR VOLUME 91 fl (80-97); RED BLOOD COUNT 4.29 10^6/uL (4.35-5.55); RED CELL DISTRIBUTION WIDTH 14.7 % (11.5-14.0); WHITE BLOOD COUNT 21.2 10^3/uL (4.0-10.5)
[2017-07-30 07:01] LABS: ALANINE AMINOTRANSFERASE 44 U/L (21-72); ALBUMIN 3.3 g/dL (3.5-5.0); ALKALINE PHOSPHATASE 50 U/L (38-126); ANION GAP 10 (5-19); ASPARTATE AMINO TRANSFERASE 46 U/L (17-59); BILIRUBIN,DIRECT 0.4 mg/dL (0.0-0.4); BILIRUBIN,TOTAL 1.6 mg/dL (0.2-1.3); BLOOD UREA NITROGEN 20 mg/dL (7-20); CARBON DIOXIDE 24 mmol/L (22-30); CHLORIDE 103 mmol/L (98-107); CREATININE RESULT 0.84 mg/dL (0.52-1.25); GLUCOSE 101 mg/dL (75-110); POTASSIUM 4.3 mmol/L (3.6-5.0); SODIUM 137.4 mmol/L (137-145); TOTAL PROTEIN 5.8 g/dL (6.3-8.2)
[2017-07-30] MEDS: TAMSULOSIN HCL 0.4 MG CAP.SR.24H PO SCH (08:11)
[2017-07-30] MEDS: NORMAL SALINE 1000 ML 1,000 ML IV PRN ×3 (08:11→19:51)
[2017-07-30 08:18] LABS: HEMOGLOBIN 13.4 g/dL (13.5-17.0)
[2017-07-30 08:26] LABS: BAND NEUTROPHILS % (MANUAL) 2 % (3-5); BASOPHILS % (MANUAL) 0 % (0-2); EOSINOPHILS % (MANUAL) 0 % (0-6); LYMPHOCYTES % (MANUAL) 3 % (13-45); TOTAL CELLS COUNTED 100
[2017-07-30 08:32] LABS: ANISOCYTOSIS SLIGHT; TOXIC GRANULATION SLIGHT
[2017-07-30] MEDS: ERTAPENEM SODIUM 1 GM in NORMAL SALINE 50 ML IV SCH (12:46)
[2017-07-30] MEDS: MORPHINE SULFATE 10 MG/ML INJ IV PRN ×2 (17:09→22:03)
--- NOTE | 2017-07-30 17:54 | PDOC PROGRESS REPORT ---
Subjective Progress Note for:: 07/30/17 Subjective:: Patient reports he is feeling much better. Patient does complain of urinary retention. He has passed flatus. He has not had a bowel movement. He denies any chest pain, shortness of breath, nausea, vomiting, headache, focal weakness. Physical Exam Vital Signs: Temp Pulse Resp BP Pulse Ox 98.3 F 73 18 127/67 H 95 07/30/17 15:28 07/30/17 15:28 07/30/17 15:28 07/30/17 15:28 07/30/17 15:28 Intake & Output 07/29/17 07/30/17 07/31/17 06:59 06:59 06:59 Intake Total 5400 Output Total 1350 Balance 4050 Weight 100.5 kg Exam: General: Awake alert and oriented x3, no acute respiratory distress HEENT: AT/NC, PERRL, EOMI, oropharynx is moist, pink, no scleral icterus, no conjunctival injection Neck: No JVD, trachea midline Chest: Clear to auscultation bilaterally, no wheezes rhonchi or rales CV: Regular rate and rhythm, normal S1 and S2, no murmur, rub, or gallop Abdomen: Soft, nontender to palpation, nondistended, active bowel sounds; no rebound, rigidity, or guarding Extremities: No cyanosis, clubbing or edema Neuro: Cranial nerves II through XII are grossly intact without focal deficits; awake alert and oriented x3 Psych: Normal mood and affect Results Laboratory Results: 07/30/17 05:46 07/30/17 05:46 07/30/17 07/30/17 05:46 05:46 WBC 21.2 H RBC 4.29 L Hgb 13.4 L D Hct 38.9 MCV 91 MCH 31.2 MCHC 34.3 RDW 14.7 H Plt Count 176 Seg Neutrophils % Not Reportable Lymphocytes % Not Reportable Monocytes % Not Reportable Eosinophils % Not Reportable Basophils % Not Reportable Absolute Neutrophils Not Reportable Absolute Lymphocytes Not Reportable Absolute Monocytes Not Reportable Absolute Eosinophils Not Reportable Absolute Basophils Not Reportable Sodium 137.4 Potassium 4.3 Chloride 103 Carbon Dioxide 24 Anion Gap 10 BUN 20 Creatinine 0.84 Est GFR ( Amer) > 60 Est GFR (Non-Af Amer) > 60 Glucose 101 Calcium 9.0 Total Bilirubin 1.6 H AST 46 ALT 44 Alkaline Phosphatase 50 Total Protein 5.8 L Albumin 3.3 L Impressions: Abdomen Ultrasound 07/29/17 02:44 IMPRESSION: No acute findings. Small gallbladder sludge. Obscured pancreas. Abdomen/Pelvis CT 07/29/17 05:02 IMPRESSION: 1. Small nonspecific pericholecystic fluid. 2. Colonic diverticulosis. 5.7 cm diameter prostate. Assessment & Plan - Diagnosis (1) Acute gangrenous cholecystitis Is this a current diagnosis for this admission?: Yes Plan: Patient currently on Invanz for this. Agree with this treatment. Defer treatment for this to the primary surgical team. (2) Sepsis Qualifiers: Sepsis type: sepsis due to unspecified organism Qualified Code(s): A41.9 - Sepsis, unspecified organism Is this a current diagnosis for this admission?: Yes Plan: Defer current management to the surgical team Recommend general surviving sepsis guidelines including maintaining a map of greater than 65. 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 These Q waves are however present on his EKG in April of this year. I do not have an EKG from before this time. This represented an acceptable level of risk for current surgery. I discussed this with patient today at length and have advised him to obtain a outpatient stress test, fasting lipid profile, and also a sleep study. His mother was present at bedside. (4) BPH (benign prostatic hyperplasia) Qualifiers: Lower urinary tract symptom detail: urinary hesitancy Is this a current diagnosis for this admission?: Yes Plan: Continue Flomax straight cath prn (5) Obesity (BMI 30.0-34.9) Is this a current diagnosis for this admission?: Yes - Plan Summary Plan Summary: We will sign off and are available for reconsultation
--- NOTE | 2017-07-30 20:33 | PROGRESS NOTE E ---
Progress Note NAME: NATALIO BETHEA : 1960 AGE: 56Y DATE: 07/30/2017 ROOM: 529 SUBJECTIVE: This is the first postop day for the patient. He had a bad gallbladder and almost gangrenous per Dr. Padilla. His blood culture also showed gram-negative rods. OBJECTIVE: His abdomen is soft with incisional pains and tenderness. PLAN: He would require another 24-48 hours of IV antibiotics. His temperature today is 98.3 and pulse rate of 73. In the meantime, gradually increase his diet as tolerated. DICTATING PHYSICIAN: DARWIN JIMENEZ M.D. [id number] [id number] ID: [id number] JOB#: [id number] ACCT: [id number] cc: >
[2017-07-31] MEDS: NORMAL SALINE 1000 ML 1,000 ML IV PRN ×2 (05:26→16:26)
[2017-07-31] MEDS: ERTAPENEM SODIUM 1 GM in NORMAL SALINE 50 ML IV SCH (09:58)
[2017-07-31] MEDS: TAMSULOSIN HCL 0.4 MG CAP.SR.24H PO SCH (10:00)
[2017-07-31] MEDS: MORPHINE SULFATE 10 MG/ML INJ IV PRN ×3 (13:51→21:48)
--- NOTE | 2017-07-31 14:08 | PROGRESS NOTE E ---
Progress Note NAME: ISAAK BETHEA : 1960 AGE: 56Y DATE: 07/31/2017 ROOM: 529 SUBJECTIVE: Isaak is post laparoscopic cholecystectomy by Dr. Padilla 2 days ago. The gallbladder appeared to be partially gangrenous and therefore patient needed a few days of IV antibiotics. Also patient had positive blood cultures. OBJECTIVE: VITAL SIGNS: Today patient is afebrile but still having some pains in the right upper quadrant but minimal tenderness on palpation. His temp is 98.8 degrees Fahrenheit with a heart rate of 79 per minute and blood pressure 142/82. His blood count was 21,000 postop. We will repeat the white count in a.m. and continue IV antibiotics. He is tolerating also clear liquids and we will increase to soft diet today. DICTATING PHYSICIAN: DARWIN JIMENEZ M.D. [id number] PHY#: [id number] ID: [id number] JOB#: [id number] ACCT: [id number] cc: >
[2017-08-01] MEDS: NORMAL SALINE 1000 ML 1,000 ML IV PRN (02:02)
[2017-08-01] MEDS ORDERED: ACETAMINOPHEN 325 MG TABLET PO PRN (04:56)
[2017-08-01] MEDS ORDERED: ACETAMINOPHEN 650 MG SUPP.RECT PR ONE (05:00)
[2017-08-01 05:34] LABS: HEMATOCRIT 39.3 % (37.9-51.0); HEMOGLOBIN 13.8 g/dL (13.5-17.0); HGB HCT DIFFERENCE 2.1; MEAN CORPUSCULAR HEMOGLOBIN 31.8 pg (27.0-33.4); MEAN CORPUSCULAR HGB CONC 35.1 g/dL (32.0-36.0); MEAN CORPUSCULAR VOLUME 90 fl (80-97); RED BLOOD COUNT 4.35 10^6/uL (4.35-5.55); RED CELL DISTRIBUTION WIDTH 14.1 % (11.5-14.0); WHITE BLOOD COUNT 12.5 10^3/uL (4.0-10.5)
[2017-08-01 05:57] LABS: BAND NEUTROPHILS % (MANUAL) 1 % (3-5); BASOPHILS % (MANUAL) 0 % (0-2); EOSINOPHILS % (MANUAL) 4 % (0-6); LYMPHOCYTES % (MANUAL) 15 % (13-45); TOTAL CELLS COUNTED 100
[2017-08-01 05:59] LABS: ANISOCYTOSIS SLIGHT; BURR CELLS SLIGHT; OVALOCYTES SLIGHT; PLATELET CLUMPS PRESENT; POIKILOCYTOSIS 1+; POLYCHROMASIA SLIGHT; TOXIC GRANULATION 1+; TOXIC VACUOLATION PRESENT
[2017-08-01] MEDS: ERTAPENEM SODIUM 1 GM in NORMAL SALINE 50 ML IV SCH (09:49)
[2017-08-01] MEDS ORDERED: TAMSULOSIN HCL 0.4 MG CAP.SR.24H PO SCH (10:00)
[2017-08-01 13:39] VITALS: BP 146/82
--- NOTE | 2017-08-01 21:38 | DISCHARGE SUMMARY E ---
Discharge Summary NAME: NATALIO BETHEA : 1960 AGE: 56Y ADMITTED: 07/29/2017 DISCHARGED: 08/01/2017 FINAL DIAGNOSIS: Acute gangrenous cholecystitis. PROCEDURE: Laparoscopic cholecystectomy by Dr. Padilla on 07/29/2017. HOSPITAL COURSE: Postoperatively the patient complained of some pains in the right upper quadrant and had a positive blood culture. He was continued on IV antibiotics. His white count came down to 12.5 from 21,000 yesterday. He is afebrile today with the pain somewhat subsided and tolerating regular diet. He was discharged on p.o. Cipro 400 mg p.o. b.i.d. for the next 7 days. He will be followed up in the [facility] by Dr. Padilla in about 2 weeks. In the meantime, advised him not to do any lifting more than 15 pounds for the next 1-2 weeks and to continue with soft diet for the 2-3 days and increase to regular diet. DICTATING PHYSICIAN: DARWIN JIMENEZ M.D. [id number] PHY#: [id number] ID: [id number] JOB#: [id number] ACCT: [id number] cc:DARWIN JIMENEZ M.D., E. R. >
== END 2017-08-01 13:51 | disposition home or self-care (01) | DRG 419 ==
LOC: ER 02:09 → UNDOADMIN 07:30 → EH 07:30 → 5 09:15
PROVIDERS: ATTEND Surgery
PROC: 0FT44ZZ Resection of Gallbladder, Percutaneous Endoscopic Approach (ICD-10-PCS; principal; 2017-07-29 15:15)
DX: K81.0 Acute cholecystitis (principal); N40.1 Benign prostatic hyperplasia with lower urinary tract symptoms; R39.11 Hesitancy of micturition; N28.1 Cyst of kidney, acquired; K40.90 Unilateral inguinal hernia, without obstruction or gangrene, not specified as recurrent; E66.9 Obesity, unspecified; Z68.32 Body mass index [BMI] 32.0-32.9, adult; Z87.891 Personal history of nicotine dependence
CPT/HCPCS: 36415; 74177; 76705; 790; 80048; 80053; 81001; 82550; 82553; 83690; 83735; 84484; 85025; 85610; 86677; 87040; 87070; 87075; 87077; 87186; 87205; 88304; 93005; 93010; 94799; 96374; 96376; 99285; J0295; J0330; J1100; J1335; J1741; J2250; J2270; J2405; J2704; J3010; J3490; J7030; Q9967

== ENCOUNTER 2017-11-02 00:45 | Emergency (ER) | payer BC ==
[2017-11-02] MEDS ORDERED: MORPHINE SULFATE 10 MG/ML INJ IV ONE (01:02)
[2017-11-02] MEDS ORDERED: ONDANSETRON HCL INJ/PF 4 MG/2 ML SDV IV ONE (01:02)
--- NOTE | 2017-11-02 01:04 | ER Document Report ---
ED GI/ - General Chief Complaint: Abdominal Pain Stated Complaint: ABDOMINAL PAIN Time Seen by Provider: 11/02/17 00:54 Notes: Patient is a 57-year-old male that comes emergency department for chief complaint of pain in his upper abdomen that started about 1 hour prior to arrival. He states the pain is sharp, comes in waves, is located mid top of his abdomen and seems to radiate outwards. He denies chest pain, he states it does not feel like it specifically radiates to his back. He denies any pain in his chest. Past medical history of cholecystectomy, orthopedic surgery, denies any other surgeries. Only other pertinent medical history is BPH and sepsis after a punch biopsy of the prostate. TRAVEL OUTSIDE OF THE [place] IN LAST 30 DAYS: No - Related Data Allergies/Adverse Reactions: No Known Allergies Allergy (Verified 05/08/17 17:08) Past Medical History - General Information source: Patient - Social History Smoking Status: Never Smoker Frequency of alcohol use: None Drug Abuse: None Lives with: Family Family History: DM, Hypertension, Malignancy - Prostate cancer Patient has suicidal ideation: No Patient has homicidal ideation: No Renal/ Medical History: Reports: Hx Benign Prostatic Hyperplasia. Denies: Hx Peritoneal Dialysis GI Medical History: Reports: Hx Gastroesophageal Reflux Disease Psychiatric Medical History: Denies: Hx Depression Past Surgical History: Reports: Hx Cholecystectomy, Hx Orthopedic Surgery - Immunizations Hx Diphtheria, Pertussis, Tetanus Vaccination: Yes Review of Systems - Review of Systems Constitutional: No symptoms reported EENT: No symptoms reported Cardiovascular: No symptoms reported Respiratory: No symptoms reported Gastrointestinal: See HPI Genitourinary: No symptoms reported Male Genitourinary: No symptoms reported Musculoskeletal: No symptoms reported Skin: No symptoms reported Hematologic/Lymphatic: No symptoms reported Neurological/Psychological: No symptoms reported Physical Exam - Vital signs Vitals: Temp Pulse Resp BP Pulse Ox 97.8 F 75 18 152/82 H 98 11/02/17 00:46 11/02/17 00:46 11/02/17 00:46 11/02/17 00:46 11/02/17 00:46 Interpretation: Normal - General General appearance: Alert, Anxious In distress: Mild - Patient intermittently appears to be uncomfortable and shifts although he does not appear to be in severe distress - HEENT Head: Normocephalic, Atraumatic Eyes: Normal Pupils: PERRL - Respiratory Respiratory status: No respiratory distress Chest status: Nontender Breath sounds: Normal. No: Decreased air movement, Wheezing Chest palpation: Normal - Cardiovascular Rhythm: Regular. No: Tachycardia Heart sounds: Normal auscultation, S1 appreciated, S2 appreciated Murmur: No - Abdominal Inspection: Normal Distension: No distension Bowel sounds: Normal Tenderness: Tender - There is generalized mid to upper abdominal tenderness, no palpable hernias, no rigidity, no rebound tenderness, no guarding. Lower abdomen is benign Organomegaly: No organomegaly - Back Back: Normal, Nontender. No: Tender - Extremities General upper extremity: Normal inspection, Nontender, Normal strength, Normal temperature General lower extremity: Normal inspection, Nontender, Normal strength, Normal temperature - Neurological Neuro grossly intact: Yes Cognition: Normal Orientation: AAOx4 [place] Coma Scale Eye Opening: Spontaneous [place] Coma Scale Verbal: Oriented [place] Coma Scale Motor: Obeys Commands [place] Coma Scale Total: 15 Speech: Normal Motor strength normal: LUE, RUE, LLE, RLE Sensory: Normal - Skin Skin Temperature: Warm Skin Moisture: Dry Skin Color: Normal Course - Re-evaluation Re-evalutation: Patient sitting up, when he lies flat he feels worse, he has pain in his general upper abdomen without guarding or significant tenderness, no CVA tenderness, he does not appear to be in distress. CBC, chemistry, lipase, urine are unremarkable. Discussed with patient. Patient already requesting a new imaging before I offered it, I asked patient if he has a hiatal hernia he states he forgot that he actually does, he admits to having terrible gastritis, states he cannot sleep flat a lot of times, states he has not been taking his antacid for the past several days, states that when the pain started getting worse he took naproxen. Fortunately he has not had any black stools, no vomiting, and his abdomen is not have any significant tenderness. Patient given Carafate, Pepcid , discussed precautions, recommendations, patient will be discharged with medications with strict return precautions for upper GI bleeding. Patient states that he will follow-up with his primary care and get an endoscopy. Patient states understanding and agreement with plan. - Vital Signs Vital signs: Temp Pulse Resp BP Pulse Ox 97.8 F 74 18 132/84 H 99 11/02/17 00:46 11/02/17 02:54 11/02/17 02:54 11/02/17 02:54 11/02/17 02:54 - Laboratory Result Diagrams: 11/02/17 01:16 11/02/17 01:16 Laboratory results interpreted by me: 11/02/17 11/02/17 01:16 01:30 BUN 25 H AST 66 H Total Protein 6.1 L Urine Urobilinogen 2.0 H Ur Leukocyte Esterase TRACE H Discharge - Discharge Clinical Impression: Upper abdominal pain Condition: Stable Disposition: HOME, SELF-CARE Additional Instructions: Your symptoms, history, and workup are most consistent with inflammation of your upper gastrointestinal tract (esophagus, stomach, small intestine). I recommend for the next 5 days he take the prescribed medications along with your current medications. Avoid NSAIDs such as ibuprofen/Advil, naproxen/Aleve , aspirin, BC powder. You can take Tylenol, Rolaids, Tums. Avoid caffeine. Follow-up with primary care, if symptoms continue I recommend you have an endoscopy referral. Return if you worsen in anyway including vomiting, return or worsening pain, black stools, swelling of the abdomen, or any other concerning symptoms. Prescriptions: Famotidine [Pepcid 20 mg Tablet] 20 mg PO BID #20 tablet Sucralfate [Carafate 1 gm Tablet] 1 gm PO QID #40 tablet Referrals: DARLENE CHINO MD [Primary Care Provider] - Follow up in 1 week
[2017-11-02 01:26] LABS: ABSOLUTE BASOPHILS # (AUTO) 0.1 10^3/uL (0.0-0.2); ABSOLUTE EOSINOPHILS # (AUTO) 0.3 10^3/uL (0.0-0.6); ABSOLUTE LYMPHOCYTES (AUTO) 2.8 10^3/uL (0.5-4.7); ABSOLUTE MONOCYTES (AUTO) 1.1 10^3/uL (0.1-1.4); ABSOLUTE NEUT (AUTO) 5.6 10^3/uL (1.7-8.2); BASOPHILS % (AUTO) 0.6 % (0-2); EOSINOPHILS % (AUTO) 3.4 % (0-6); HEMATOCRIT 39.8 % (37.9-51.0); HEMOGLOBIN 14.1 g/dL (13.5-17.0); HGB HCT DIFFERENCE 2.5; LYMPHOCYTES % (AUTO) 28.7 % (13-45); MEAN CORPUSCULAR HEMOGLOBIN 31.8 pg (27.0-33.4); MEAN CORPUSCULAR HGB CONC 35.5 g/dL (32.0-36.0); MEAN CORPUSCULAR VOLUME 90 fl (80-97); MONOCYTES % (AUTO) 10.8 % (3-13); RED BLOOD COUNT 4.44 10^6/uL (4.35-5.55); RED CELL DISTRIBUTION WIDTH 13.6 % (11.5-14.0); SEGMENTED NEUTROPHILS % (AUTO) 56.5 % (42-78); WHITE BLOOD COUNT 9.9 10^3/uL (4.0-10.5)
[2017-11-02 01:45] LABS: ALANINE AMINOTRANSFERASE 44 U/L (21-72); ALBUMIN 3.7 g/dL (3.5-5.0); ALKALINE PHOSPHATASE 76 U/L (38-126); ANION GAP 12 (5-19); ASPARTATE AMINO TRANSFERASE 66 U/L (17-59); BILIRUBIN,DIRECT 0.2 mg/dL (0.0-0.4); BILIRUBIN,TOTAL 1.1 mg/dL (0.2-1.3); BLOOD UREA NITROGEN 25 mg/dL (7-20); CARBON DIOXIDE 26 mmol/L (22-30); CHLORIDE 105 mmol/L (98-107); CREATININE RESULT 0.88 mg/dL (0.52-1.25); GLUCOSE 95 mg/dL (75-110); LIPASE 152.8 U/L (23-300); POTASSIUM 3.6 mmol/L (3.6-5.0); SODIUM 142.8 mmol/L (137-145); TOTAL PROTEIN 6.1 g/dL (6.3-8.2)
[2017-11-02] MEDS ORDERED: SUCRALFATE 1 GM TABLET PO ONE (02:06)
[2017-11-02] MEDS ORDERED: FAMOTIDINE 20 MG TABLET PO ONE (02:06)
[2017-11-02 02:19] LABS: APPEARANCE,URINE CLEAR; BILIRUBIN,URINE NEGATIVE (NEGATIVE); GLUCOSE, URINE NEGATIVE (NEGATIVE); KETONES,URINE NEGATIVE (NEGATIVE); LEUKOCYTE ESTERASE,URINE TRACE (NEGATIVE); NITRITE,URINE NEGATIVE (NEGATIVE); PROTEIN,URINE NEGATIVE (NEGATIVE); URINE SPECIFIC GRAVITY 1.021
[2017-11-02 02:54] VITALS: BP 132/84
== END 2017-11-02 02:45 | disposition home or self-care (01) ==
LOC: ER 00:45
DX: K29.70 Gastritis, unspecified, without bleeding (principal); K44.9 Diaphragmatic hernia without obstruction or gangrene; K21.9 Gastro-esophageal reflux disease without esophagitis; R10.10 Upper abdominal pain, unspecified; Z90.49 Acquired absence of other specified parts of digestive tract
CPT/HCPCS: 99284; 96374; 96375; 36415; 83690; 85025; 80053; 81001; J2270; J2405

== ENCOUNTER 2018-05-20 03:33 | Emergency (ER) | payer BC ==
[2018-05-20] MEDS ORDERED: NORMAL SALINE 1000 ML 1,000 ML IV ONE (04:08)
[2018-05-20] MEDS ORDERED: FAMOTIDINE INJ/PF 20 MG/2 ML SDV IV ONE (04:13)
[2018-05-20] MEDS: MORPHINE SULFATE 10 MG/ML INJ IV PRN ×4 (04:18→10:57)
[2018-05-20 04:19] LABS: ABSOLUTE EOSINOPHILS # (AUTO) 0.2 10^3/uL (0.0-0.6); ABSOLUTE LYMPHOCYTES (AUTO) 1.3 10^3/uL (0.5-4.7); ABSOLUTE MONOCYTES (AUTO) 1.2 10^3/uL (0.1-1.4); ABSOLUTE NEUT (AUTO) 11.4 10^3/uL (1.7-8.2); BASOPHILS % (AUTO) 0.4 % (0-2); EOSINOPHILS % (AUTO) 1.2 % (0-6); HEMATOCRIT 44.8 % (37.9-51.0); HEMOGLOBIN 15.4 g/dL (13.5-17.0); LYMPHOCYTES % (AUTO) 9.3 % (13-45); MEAN CORPUSCULAR HEMOGLOBIN 31.7 pg (27.0-33.4); MEAN CORPUSCULAR HGB CONC 34.4 g/dL (32.0-36.0); MEAN CORPUSCULAR VOLUME 92 fl (80-97); MONOCYTES % (AUTO) 8.3 % (3-13); PLATELET COUNT 268 10^3/uL (150-450); RED BLOOD COUNT 4.86 10^6/uL (4.35-5.55); RED CELL DISTRIBUTION WIDTH 14.6 % (11.5-14.0); SEGMENTED NEUTROPHILS % (AUTO) 80.8 % (42-78); TOTAL CELLS COUNTED % (AUTO) 100 %; WHITE BLOOD COUNT 14.1 10^3/uL (4.0-10.5)
[2018-05-20] MEDS ORDERED: METOCLOPRAMIDE HCL INJ/PF 10 MG/2 ML SDV IV ONE (04:29)
[2018-05-20 04:34] LABS: ALANINE AMINOTRANSFERASE 831 U/L (21-72); ALBUMIN 4.2 g/dL (3.5-5.0); ALKALINE PHOSPHATASE 121 U/L (38-126); ANION GAP 12 (5-19); ASPARTATE AMINO TRANSFERASE 581 U/L (17-59); BILIRUBIN,DIRECT 2.1 mg/dL (0.0-0.4); BLOOD UREA NITROGEN 16 mg/dL (7-20); CALCIUM 10.2 mg/dL (8.4-10.2); CARBON DIOXIDE 29 mmol/L (22-30); CHLORIDE 106 mmol/L (98-107); GLUCOSE 105 mg/dL (75-110); POTASSIUM 3.9 mmol/L (3.6-5.0); SODIUM 147.3 mmol/L (137-145); TOTAL PROTEIN 7.1 g/dL (6.3-8.2)
--- NOTE | 2018-05-20 04:51 | ER Document Report ---
ED General - General Mode of Arrival: Ambulatory Information source: Patient TRAVEL OUTSIDE OF THE [place] IN LAST 30 DAYS: No <JOY AGUILAR - Last Filed: 05/20/18 06:25> <MIGUEL A NAM - Last Filed: 05/20/18 17:17> - General Chief Complaint: Abdominal Pain Stated Complaint: ABDOMINAL PAIN Time Seen by Provider: 05/20/18 03:57 Notes: Patient is a 57-year-old male who presents with chief complaint of abdominal pain. Patient reports that this pain has been ongoing since October however has been increasing in frequency and intensity. The abdominal pain is located from his epigastric area down to his low abdomen and is only in the center. Patient unable to describe what it feels like, patient states sometimes he feels like a stabbing pain and sometimes it feels like a pulling sensation. Patient reports that he has bouts of severe abdominal pain at least twice weekly. Patient reports that tonight he became pain became so severe and he began vomiting. Patient denies any diarrhea, denies denies any fevers or urinary symptoms. (JOY AGUILAR) - Related Data Allergies/Adverse Reactions: No Known Allergies Allergy (Verified 05/08/17 17:08) Past Medical History - General Information source: Patient - Social History Smoking Status: Never Smoker Frequency of alcohol use: None Drug Abuse: None Lives with: Family Family History: DM, Hypertension, Malignancy - Prostate cancer - Medical History Medical History: Negative Renal/ Medical History: Reports: Hx Benign Prostatic Hyperplasia. Denies: Hx Peritoneal Dialysis Malignancy Medical History: Reports Hx Prostate Cancer GI Medical History: Reports: Hx Gastritis, Hx Gastroesophageal Reflux Disease, Hx Hiatal Hernia Psychiatric Medical History: Denies: Hx Depression Past Surgical History: Reports: Hx Cholecystectomy, Hx Orthopedic Surgery - Immunizations Hx Diphtheria, Pertussis, Tetanus Vaccination: Yes <JOY AGUILAR - Last Filed: 05/20/18 06:25> Review of Systems - Review of Systems Constitutional: No symptoms reported EENT: No symptoms reported Cardiovascular: No symptoms reported Respiratory: No symptoms reported Gastrointestinal: See HPI Genitourinary: No symptoms reported Male Genitourinary: No symptoms reported Musculoskeletal: No symptoms reported Skin: No symptoms reported Hematologic/Lymphatic: No symptoms reported Neurological/Psychological: No symptoms reported <JOY AGUILAR - Last Filed: 05/20/18 06:25> Physical Exam <JOY AGUILAR - Last Filed: 05/20/18 06:25> <MIGUEL A NAM - Last Filed: 05/20/18 17:17> - Vital signs Vitals: Temp Pulse Resp BP Pulse Ox 98.1 F 74 20 136/78 H 97 05/20/18 03:36 05/20/18 03:36 05/20/18 03:36 05/20/18 03:36 05/20/18 03:36 - Notes Notes: PHYSICAL EXAMINATION: GENERAL: Well-appearing, well-nourished and in no acute distress. HEAD: Atraumatic, normocephalic. EYES: Pupils equal round and reactive to light, extraocular movements intact, sclera anicteric, conjunctiva are normal. ENT: Nares patent, oropharynx clear without exudates. Moist mucous membranes. NECK: Normal range of motion, supple without lymphadenopathy LUNGS: Breath sounds clear to auscultation bilaterally and equal. No wheezes rales or rhonchi. HEART: Regular rate and rhythm without murmurs. ABDOMEN: Soft, nondistended abdomen. Tenderness to palpation to epigastric and periumbilical areas, no tenderness to right or left side of the abdomen. No guarding, no rebound. No masses appreciated. Musculoskeletal: Normal range of motion, no pitting or edema. No cyanosis. NEUROLOGICAL: Cranial nerves grossly intact. Normal speech. Normal sensory, motor exams PSYCH: Normal mood, normal affect. SKIN: Warm, Dry, normal turgor, no rashes or lesions noted. (JOY AGUILAR) Course - Laboratory Result Diagrams: 05/20/18 04:05 05/20/18 04:05 <JOY AGUILAR - Last Filed: 05/20/18 06:25> - Laboratory Result Diagrams: 05/20/18 04:05 05/20/18 04:05 <MIGUEL A NAM - Last Filed: 05/20/18 17:17> - Re-evaluation Re-evalutation: 57-year-old male patient presenting with mid abdominal pain patient reports started in October. Patient reports that over the last few months it has been increasing in frequency and intensity. Patient reports that prior to arrival the pain got severe and he vomited twice. Patient denies any other history of vomiting prior to tonight. Patient denies any diarrhea, reports normal bowel movements. Patient also denies any fevers or urinary symptoms. Patient reports that he has been taking Tums and Gas-X without relief. Patient's vital signs are within normal limits on arrival, no tachycardia no hypotension noted patient's initial abdominal exam with tenderness to palpation to the epigastric region as well as the periumbilical region. Patient does appear to be in moderate distress. Initial lab workup reveals an increase in his direct and indirect bilirubin as well as elevated AST and ALT. Lipase is 54 ,159. CBC reveals leukocytosis with a left shift. White blood count is 14.1. Patient does report significant relief of his pain after administration of morphine IV. Patient's vital signs remained stable. Patient will be sent for CT abdomen pelvis with IV and oral contrast. (JOY AGUILAR) 05/20/18 09:02 Patient has common bile duct dilatation, probable distal common bile duct stone , patient would like to go to [facility] as we do not perform ERCP here. I did call my surgeon on-call Dr. Beck who states that he does need to be transferred because we do not perform ERCP and that is the procedure he needs at this time. Patient resting comfortably after pain medication was just given. Transfer initiated, awaiting callback. 05/20/18 09:16 Dr. Kelly, hospitalist at [facility] accepts transfer at this time. 05/20/18 11:17 pt doing well, no complaints at this time, transport here to take him to [facility]. (MIGUEL A NAM) - Vital Signs Vital signs: Temp Pulse Resp BP Pulse Ox 98.5 F 74 12 131/86 H 97 05/20/18 11:15 05/20/18 03:36 05/20/18 11:15 05/20/18 11:15 05/20/18 11:15 - Laboratory Laboratory results interpreted by me: 05/20/18 05/20/18 05/20/18 04:05 04:05 06:40 WBC 14.1 H RDW 14.6 H Seg Neutrophils % 80.8 H Lymphocytes % 9.3 L Absolute Neutrophils 11.4 H Sodium 147.3 H Total Bilirubin 4.0 H Direct Bilirubin 2.1 H AST 581 H ALT 831 H Lipase 48137.4 H Urine Urobilinogen 2.0 H Discharge <JOY AGUILAR - Last Filed: 05/20/18 06:25> <MIGUEL A NAM - Last Filed: 05/20/18 17:17> - Discharge Clinical Impression: Common bile duct stone Pancreatitis Qualifiers: Chronicity: acute Pancreatitis type: biliary Acute pancreatitis complication: unspecified Qualified Code(s): K85.10 - Biliary acute pancreatitis without necrosis or infection Condition: Stable Disposition: [facility] Referrals: DARLENE CHINO MD [Primary Care Provider] - Follow up as needed
[2018-05-20 06:07] LABS: LIPASE 54159.4 U/L (23-300)
[2018-05-20 06:52] LABS: APPEARANCE,URINE CLEAR; BILIRUBIN,URINE NEGATIVE (NEGATIVE); COLOR,URINE YELLOW; GLUCOSE, URINE NEGATIVE (NEGATIVE); KETONES,URINE NEGATIVE (NEGATIVE); LEUKOCYTE ESTERASE,URINE NEGATIVE (NEGATIVE); NITRITE,URINE NEGATIVE (NEGATIVE); PROTEIN,URINE NEGATIVE (NEGATIVE); URINE SPECIFIC GRAVITY 1.011
--- NOTE | 2018-05-20 08:29 | RADIOLOGY REPORT (SQ) ---
EXAM DESCRIPTION: CT ABD/PELVIS WITH IV ORAL COMPLETED DATE/TIME: 05/20/2018 8:13 am REASON FOR STUDY: mid-abdominal pain/vomiting COMPARISON: CT abdomen pelvis 07/29/2017, 05/08/2017 TECHNIQUE: CT scan of the abdomen and pelvis performed using helical scanning technique with dynamic intravenous contrast injection. Patient drank oral contrast. Images reviewed with lung, soft tissue , and bone windows. Reconstructed coronal and sagittal MPR images reviewed. Delayed images for evalua tion of the urinary system also acquired. All images stored on PACS. All CT scanners at this facility use dose modulation, iterative reconstruction, and/or weight based d osing when appropriate to reduce radiation dose to as low as reasonably achievable (ALARA). [facility]: Dose Right [facility]: CareDose [facility]: Dose Right [facility]: Teradose 4D [facility]: Indicee CONTRAST TYPE AND DOSE: contrast/concentration: Isovue 370.00 mg/ml; Total Contrast Delivered: 100.0 ml; Total Saline Delivered: 72.0 ml RENAL FUNCTION: Creatinine 0.96 RADIATION DOSE: CT Rad equipment meets quality standard of care and radiation dose reduction techniq ues were employed. CTDIvol: 16.2 - 19.4 mGy. DLP: 1930 mGy-cm.. LIMITATIONS: None. FINDINGS: LOWER CHEST: Bibasilar atelectasis is present LIVER: No masses. There is mild intra and extrahepatic biliary ductal dilatation, new compared to and 05/08/2017, question distal common bile duct stone or stricture. SPLEEN: Normal size. No focal lesions. PANCREAS: There is mild diffuse inflammation in the retroperitoneum along the pancreas. Findings are worrisome for pancreatitis. GALLBLADDER: Surgically absent ADRENAL GLANDS: No significant masses or asymmetry. RIGHT KIDNEY AND URETER: No solid masses. 1.2 cm cyst right mid-pole kidney. No significant calcif ications. No hydronephrosis or hydroureter. LEFT KIDNEY AND URETER: No solid masses. No significant calcifications. No hydronephrosis or hydr oureter. AORTA AND VESSELS: No aneurysm. No dissection. Renal arteries, SMA, celiac without stenosis. RETROPERITONEUM: No retroperitoneal adenopathy, hemorrhage or masses. BOWEL AND PERITONEAL CAVITY: Patient drank oral contrast. No evidence of bowel obstruction. No free intraperitoneal air or fluid. APPENDIX: Normal. PELVIS: No mass. No free fluid. Normal bladder. Enlarged prostate ABDOMINAL WALL: No masses. No hernias. BONES: No significant or acute findings. OTHER: No other significant finding. IMPRESSION: Very mild biliary ductal dilatation, new compared to PET-CT 07/29/2017. Mild peripancrea tic inflammation. Findings are worrisome for a distal common duct stone TECHNICAL DOCUMENTATION: JOB ID: [id number] Quality ID # [id number]: Final reports with documentation of one or more dose reduction techniques (e.g., Au tomated exposure control, adjustment of the mA and/or kV according to patient size, use of iterative reconstruction technique) 2010 [employer]- All Rights Reserved Reading location - IP/workstation name: [email or web address]
[2018-05-20 11:28] VITALS: BP 131/86
--- NOTE | 2018-05-20 13:31 | EKG REPORT ---
SEVERITY:- ABNORMAL ECG - SINUS RHYTHM INFERIOR INFARCT, AGE INDETERMINATE : Confirmed by: Patrick Escobar MD 20-May-2018 13:30:40
[2018-05-21 08:38] LABS: HEPATITIS A AB IGM Negative (Negative); HEPATITIS B CORE AB IGM Negative (Negative); HEPATITS B SURFACE ANTIGEN Negative (Negative)
[2018-05-22 09:30] LABS: HEPATITIS C VIRUS ANTIBODY <0.1 s/co ratio (0.0-0.9)
== END 2018-05-20 11:28 | disposition short-term general hospital (02) ==
LOC: ER 03:33
DX: K80.50 Calculus of bile duct without cholangitis or cholecystitis without obstruction (principal); K85.10 Biliary acute pancreatitis without necrosis or infection; R10.13 Epigastric pain; R10.30 Lower abdominal pain, unspecified; R10.816 Epigastric abdominal tenderness; R10.813 Right lower quadrant abdominal tenderness; R11.10 Vomiting, unspecified; R74.8 Abnormal levels of other serum enzymes; Z85.46 Personal history of malignant neoplasm of prostate; Z90.49 Acquired absence of other specified parts of digestive tract
CPT/HCPCS: 93005; 96376; 99285; 96361; 96374; 96375; 36415; 83690; 83735; 85025; 80053; 81001; 84484; 80074; 74177; 93010; J2765; J2270; J7030; S0028